=== PATIENT | female | born 1985 | race Caucasian/White ===

== ENCOUNTER 2016-08-31 13:48 | Emergency (ER) | payer OTHER ==
[~2016-08-31] VITALS: Ht 167.6 cm; Wt 57.2 kg
[~2016-08-31 13:48] MED LIST: PREG100C PO; SERT-234 PO; TRAM-10 PO
[2016-08-31 13:50] VITALS: TEMP 36.7; Ht 167.6 cm; Wt 57.2 kg
[2016-08-31] MEDS ORDERED: ONDANSETRON INJ 2 MG/ML 2 ML VIAL IV STA (14:01)
[2016-08-31] MEDS ORDERED: SODIUM CHLORIDE 0.9% 1000ML 1,000 ML IV STA (14:01)
[2016-08-31 14:13] LABS: BASO % 0.7 %; BASO ABS # 0.05 K/uL (0-0.2); COMPLETE YES; EOS % 0.6 %; HEMATOCRIT 43.7 % (37-47); IG% 0.1 %; LYMPH % 26.3 %; LYMPH ABS # 1.82 K/uL (1.2-3.4); MEAN CELL VOLUME 86.9 fL (80-100); MEAN CORPUSCULAR HEMOGLOBIN 29.2 pg (25-34); MEAN CORPUSCULAR HGB CONC 33.6 g/dl (32-36); MEAN PLATELET VOLUME 11.7 fL (7.4-10.4); MONO % 5.5 %; NEUT % 66.8 %; PLATELET COUNT 195 K/uL (130-400); RED BLOOD COUNT 5.03 M/uL (4.2-5.4); WHITE BLOOD COUNT 6.91 K/uL (4.8-10.8)
[2016-08-31] MEDS ORDERED: ONDA4TAB10 SL (14:20)
[2016-08-31] MEDS ORDERED: OXYC1TAB3 PO (14:20)
[2016-08-31] MEDS ORDERED: OPTIRAY 320 IV PRN (14:30)
[2016-08-31 14:32] LABS: ALT/SGPT 19 U/L (12-78); BLOOD UREA NITROGEN 10 mg/dl (7-18); BUN/CREATININE RATIO 10.1 (10-20); CALCIUM 9.2 mg/dl (8.5-10.1); CARBON DIOXIDE 26 mmol/L (21-32); CHLORIDE 106 mmol/L (98-107); CREATININE 0.94 mg/dl (0.60-1.20); GLUCOSE 96 mg/dl (70-99); POTASSIUM 3.9 mmol/L (3.5-5.1); SODIUM 138 mmol/L (136-145)
[2016-08-31] MEDS ORDERED: IBUP-1050 PO (14:32)
[2016-08-31 14:35] LABS: ALKALINE PHOSPHATASE 51 U/L (45-117); AST/SGOT 11 U/L (15-37)
[2016-08-31 15:16] LABS: URINE APPEARANCE CLEAR (CLEAR); URINE BILIRUBIN NEG (NEG); URINE COLOR YELLOW; URINE EPITHELIAL CELL AUTO >30 /lpf (0-5); URINE NITRITE NEG (NEG); URINE SPECIFIC GRAVITY 1.008 (1.000-1.030); UROBILINOGEN NEG (NEG)
[2016-08-31 15:18] LABS: MANUAL MICROSCOPIC REQUIRED? NO; REVIEW REQ? NO
--- NOTE | 2016-08-31 17:00 | DIAGNOSTIC IMAGING REPORT ---
CT SCAN OF THE ABDOMEN AND PELVIS WITH IV CONTRAST CLINICAL HISTORY: Right lower quadrant abdominal pain. COMPARISON STUDY: No priors. TECHNIQUE: Following the IV administration of 94 cc of Optiray 320, CT scan of the abdomen and pelvis is performed from the lung bases to the proximal femora. Images are reviewed in the axial, sagittal, and coronal planes. IV contrast was administered without complication. Automated dose control exposure was utilized. CT DOSE: 234.10 mGy.cm FINDINGS: Lung bases: The heart is normal in size and without pericardial effusion. There is minimal dependent scarring versus atelectasis at the left lung base. The lung bases are otherwise clear. Liver: The contrast-enhanced liver is normal in size, contour, and attenuation. There is no intrahepatic biliary ductal dilatation. The hepatic veins and portal veins are patent. Gallbladder: Unremarkable. Spleen: Normal in size and attenuation. Pancreas: Unremarkable. Adrenal glands: Unremarkable. Kidneys: The contrast enhanced kidneys are normal in size and without hydronephrosis. The kidneys enhance symmetrically. There is a 6 cm nonobstructing calculus in the upper pole of the right kidney. Tiny left renal calculi are also suspected but difficult to confirm on this contrast-enhanced examination. Abdominal vasculature: The abdominal aorta is normal in course and caliber. Bowel: The small bowel and colon are normal in course and caliber. Moderate colonic fecal retention is observed. The appendix is well-visualized and normal. Peritoneum: There is no intraperitoneal free air or abdominal ascites. There is a fat-containing umbilical hernia. Lymphadenopathy: None. Pelvic viscera: The bladder, uterus, and adnexa are normal as visualized. There are bilateral ovarian follicles. An involuting follicle is noted on the right. Skeletal structures: No lytic or blastic lesions are seen. IMPRESSION: 1. There are no acute infectious or inflammatory findings in the abdomen or pelvis. 2. Moderate constipation. 3. Nonobstructing right renal calculus. Tiny nonobstructing left calculi are also suspected but difficult to confirm given the presence of IV contrast. There is no hydronephrosis. 4. Additional findings as above. Electronically signed by: Omar Caldera M.D. 08/31/2016 4:58 PM Dictated Date/Time: 08/31/2016 4:53 PM
[2016-08-31] MEDS ORDERED: OXYCODONE IR HOME PACK PO ONE (17:45)
--- NOTE | 2016-08-31 17:52 | EMERGENCY ROOM VISIT NOTE ---
History Report prepared by Tasha: Keeley Johnson Under the Supervision of: Dr. Matt Rucker M.D. First contact with patient: 13:54 Chief Complaint: FLANK PAIN Stated Complaint: KIDNEY PAIN History of Present Illness The patient is a 30 year old female who presents to the Emergency Room with complaints of waxing and waning bilateral flank pain that began 2 days prior to arrival. The patient states that the right side is more severe than the left. She also notes that the pain radiates around to her abdomen. She states that the pain is constant but the severity waxes and wanes. The patient is experiencing nausea and loose stools. She denies vomiting. The patient saw her PCP and was referred to the ED for check of a kidney stone. The patient has a history of kidney stones. She denies fevers or blood in her urine. The patient has endometrioses and states that this pain is more severe that what she experiences from this. Source of History: patient Onset: [address] Position: other (bilateral flanks) Timing: waxes/wanes Associated Symptoms: + nausea, No fevers, No vomiting Note: The patient is experiencing loose stools. She denies blood in her urine. Review of Systems See HPI for pertinent positives & negatives. A total of 10 systems reviewed and were otherwise negative. Past Medical & Surgical Medical Problems: (1) Acute costochondritis (2) Bilateral tubal ligation (3) section (4) Chronic interstitial cystitis (5) Kidney calculi (6) Tietze's Disease Family History Diabetes mellitus Social History Smoking Status: Never Smoker Alcohol Use: occasionally Drug Use: none Marital Status: Housing Status: lives with family Occupation Status: employed Current/Historical Medications Scheduled Ondasetron Odt (Zofran Odt), 4 MG SL Q6H Scheduled PRN Ibuprofen (Advil), 400 MG PO UD PRN for Pain Oxycodone Ir (Roxicodone Ir), 5 MG PO Q4H PRN for Pain Allergies Coded Allergies: No Known Allergies (Verified Allergy, Unknown, 08/10/05) Physical Exam Vital Signs Date Time Temp Pulse Resp B/P (MAP) Pulse Ox O2 Delivery O2 Flow Rate FiO2 08/31/16 16:11 60 18 131/80 98 08/31/16 13:50 36.7 82 18 135/85 98 Room Air Physical Exam Constitutional: Vital signs reviewed. Eyes: Pupils are equal round reactive to light. Conjunctiva are noninjected. ENT: Pharynx is clear without erythema or exudate. Mucous membranes are moist. Neck supple without meningeal signs. Respiratory: Clear to auscultation bilaterally. Breath sounds are equal bilaterally. Cardiovascular: Regular rate and rhythm. No rubs or gallops. GI: Soft, nondistended, right lower quadrant tenderness, no guarding. Bowel sounds are present. Musculoskeletal: No peripheral edema. No lower extremity tenderness. Integumentary: No cyanosis. Neurological: The patient is awake and alert. No focal deficits. Psychiatric: Normal affect. Medical Decision & Procedures ER Provider Diagnostic Interpretation: CT results as stated below per my review and radiologist interpretation. CT SCAN OF THE ABDOMEN AND PELVIS WITH IV CONTRAST CLINICAL HISTORY: Right lower quadrant abdominal pain. COMPARISON STUDY: No priors. TECHNIQUE: Following the IV administration of 94 cc of Optiray 320, CT scan of the abdomen and pelvis is performed from the lung bases to the proximal femora. Images are reviewed in the axial, sagittal, and coronal planes. IV contrast was administered without complication. Automated dose control exposure was utilized. CT DOSE: 234.10 mGy.cm FINDINGS: Lung bases: The heart is normal in size and without pericardial effusion. There is minimal dependent scarring versus atelectasis at the left lung base. The lung bases are otherwise clear. Liver: The contrast-enhanced liver is normal in size, contour, and attenuation. There is no intrahepatic biliary ductal dilatation. The hepatic veins and portal veins are patent. Gallbladder: Unremarkable. Spleen: Normal in size and attenuation. Pancreas: Unremarkable. Adrenal glands: Unremarkable. Kidneys: The contrast enhanced kidneys are normal in size and without hydronephrosis. The kidneys enhance symmetrically. There is a 6 cm nonobstructing calculus in the upper pole of the right kidney. Tiny left renal calculi are also suspected but difficult to confirm on this contrast-enhanced examination. Abdominal vasculature: The abdominal aorta is normal in course and caliber. Bowel: The small bowel and colon are normal in course and caliber. Moderate colonic fecal retention is observed. The appendix is well-visualized and normal. Peritoneum: There is no intraperitoneal free air or abdominal ascites. There is a fat-containing umbilical hernia. Lymphadenopathy: None. Pelvic viscera: The bladder, uterus, and adnexa are normal as visualized. There are bilateral ovarian follicles. An involuting follicle is noted on the right. Skeletal structures: No lytic or blastic lesions are seen. IMPRESSION: 1. There are no acute infectious or inflammatory findings in the abdomen or pelvis. 2. Moderate constipation. 3. Nonobstructing right renal calculus. Tiny nonobstructing left calculi are also suspected but difficult to confirm given the presence of IV contrast. There is no hydronephrosis. 4. Additional findings as above. Electronically signed by: Omar Caldera M.D. 08/31/2016 4:58 PM Dictated Date/Time: 08/31/2016 4:53 PM Laboratory Results 08/31/16 14:06 Red Blood Count 5.03, Mean Corpuscular Volume 86.9, Mean Corpuscular Hemoglobin 29.2, Mean Corpuscular Hemoglobin Concent 33.6, Mean Platelet Volume 11.7, Neutrophils (%) (Auto) 66.8, Lymphocytes (%) (Auto) 26.3, Monocytes (%) (Auto) 5.5, Eosinophils (%) (Auto) 0.6, Basophils (%) (Auto) 0.7, Neutrophils # (Auto) 4.61, Lymphocytes # (Auto) 1.82, Monocytes # (Auto) 0.38, Eosinophils # (Auto) 0.04, Basophils # (Auto) 0.05 08/31/16 14:06 Test 08/31/16 14:06 08/31/16 15:06 White Blood Count 6.91 K/uL (4.8-10.8) Red Blood Count 5.03 M/uL (4.2-5.4) Hemoglobin 14.7 g/dL (12.0-16.0) Hematocrit 43.7 % (37-47) Mean Corpuscular Volume 86.9 fL (80-100) Mean Corpuscular Hemoglobin 29.2 pg (25-34) Mean Corpuscular Hemoglobin Concent 33.6 g/dl (32-36) Platelet Count 195 K/uL (130-400) Mean Platelet Volume 11.7 fL (7.4-10.4) Neutrophils (%) (Auto) 66.8 % Lymphocytes (%) (Auto) 26.3 % Monocytes (%) (Auto) 5.5 % Eosinophils (%) (Auto) 0.6 % Basophils (%) (Auto) 0.7 % Neutrophils # (Auto) 4.61 K/uL (1.4-6.5) Lymphocytes # (Auto) 1.82 K/uL (1.2-3.4) Monocytes # (Auto) 0.38 K/uL (0.11-0.59) Eosinophils # (Auto) 0.04 K/uL (0-0.5) Basophils # (Auto) 0.05 K/uL (0-0.2) RDW Standard Deviation 40.8 fL (36.4-46.3) RDW Coefficient of Variation 12.7 % (11.5-14.5) Immature Granulocyte % (Auto) 0.1 % Immature Granulocyte # (Auto) 0.01 K/uL (0.00-0.02) Anion Gap 6.0 mmol/L (3-11) Est Creatinine Clear Calc Drug Dose 77.6 ml/min Estimated GFR () 93.0 Estimated GFR (Non- 80.3 BUN/Creatinine Ratio 10.1 (10-20) Calcium Level 9.2 mg/dl (8.5-10.1) Total Bilirubin 0.3 mg/dl (0.2-1) Direct Bilirubin < 0.1 mg/dl (0-0.2) Aspartate Amino Transf (AST/SGOT) 11 U/L (15-37) Alanine Aminotransferase (ALT/SGPT) 19 U/L (12-78) Alkaline Phosphatase 51 U/L (45-117) Total Protein 8.1 gm/dl (6.4-8.2) Albumin 4.5 gm/dl (3.4-5.0) Lipase 153 U/L (73-393) Urine Color YELLOW Urine Appearance CLEAR (CLEAR) Urine pH 8.0 (4.5-7.5) Urine Specific Edison 1.008 (1.000-1.030) Urine Protein NEG (NEG) Urine Glucose (UA) NEG (NEG) Urine Ketones NEG (NEG) Urine Occult Blood NEG (NEG) Urine Nitrite NEG (NEG) Urine Bilirubin NEG (NEG) Urine Urobilinogen NEG (NEG) Urine Leukocyte Esterase TRACE (NEG) Urine WBC (Auto) 1-5 /hpf (0-5) Urine RBC (Auto) 0-4 /hpf (0-4) Urine Hyaline Casts (Auto) 1-5 /lpf (0-5) Urine Epithelial Cells (Auto) >30 /lpf (0-5) Urine Bacteria (Auto) NEG (NEG) Urine Test NEG (NEG) Laboratory results as reviewed by me. Medications Administered Medications (Trade) Dose Ordered Sig/Jailyn Route Start Time Stop Time Status Last Admin Dose Admin Ondansetron HCl (Zofran Inj) 4 mg NOW STAT IV 08/31/16 14:01 08/31/16 14:02 DC 08/31/16 14:13 4 MG Sodium Chloride 1,000 ml @ 999 mls/hr Q1H1M STAT IV 08/31/16 14:01 08/31/16 15:01 DC 08/31/16 14:01 999 MLS/HR ED Course 1355: The patient was evaluated in room C2. A complete history and physical exam was performed. 1401: Sodium Chloride 1,000 ml @ 999 mls/hr IV, Zofran Inj 4 mg IV. 1444: I discussed the patient's test results and she will give a urine sample now. 1927: I reassessed the patient. I discussed the test results with her. 1930: Upon reevaluation, the patient appeared to have improvement of her symptoms. I discussed sarita's findings with her. She verbalized agreement of the treatment plan. She was discharged home. Medical Decision This is a 30-year-old female presents with abdominal and flank pain. Differential diagnosis includes renal colic, pyelonephritis, UTI, appendicitis, irritable bowel syndrome, inflammatory bowel disease, ectopic , endometriosis. I did perform a limited focused review of portions of the patient's old chart on the electronic medical record. The patient has had no recent pertinent visits to this hospital. Medication Reconciliation: I attest that I have personally reviewed the patient' s current medication list. Blood Pressure Screening: Patient was found to have a slightly elevated blood pressure due to circumstances. I do not believe that the patient requires hypertension monitoring. I did evaluate the patient as noted above. She is tender in the right lower quadrant on examination. IV access was established. I did treat her with IV Zofran and normal saline IV. The patient was made NPO. I did order and personally review the patient's urinalysis as described above. There is no significant evidence of infection. I did order and review the patient's blood work as noted in the electronic medical record. I did order a CT of the abdomen and pelvis. I did review the images myself as well as the radiology report as described above. There is no evidence of acute process on CT scan. She does have some incidental findings which I discussed with her. She does believe that this is likely an exacerbation of her endometriosis. She has an appointment to see her HARVESTING MANAGER. I did advise patient to follow up with her regular doctor she as well. She was given oxycodone for breakthrough pain should she need it. She was given precautions regarding this medication. She was also given a prescription for Zofran if needed. She was discharged in good condition. [place] Drug Monitoring Program Search Results: patient reviewed within database, no issues identified Impression Primary Impression: Bilateral flank pain Additional Impression: Right lower quadrant abdominal pain Scribe Attestation The scribe's documentation has been prepared under my direct and personally reviewed by me in its entirety. I confirm that the note above accurately reflects all work, treatment, procedures, and medical decision making performed by me. Departure Information Dispostion Home / Self-Care Prescriptions Ondasetron Odt (ZOFRAN ODT) 4 Mg Tab 4 MG SL Q6H for Nausea, #10 TAB Prov: Matt Rucker M.D. 08/31/16 Oxycodone Ir (Roxicodone Ir) 5 Mg Tab 5 MG PO Q4H Y for Pain, #20 TAB Prov: Matt Rucker M.D. 08/31/16 Referrals Vadim Singh M.D.(FLIP) (PCP) Forms HOME CARE DOCUMENTATION FORM, IMPORTANT VISIT INFORMATION Patient Instructions ED Flank Pain Uncertain Cause, My [facility] Additional Instructions You have been examined and treated today on an emergency basis only. This is not a substitute for, or an effort to provide, complete comprehensive medical care. It is impossible to recognize and treat all injuries or illnesses in a single emergency department visit. It is therefore important that you follow up closely with your physician. Call as soon as possible for an appointment. Return for worsening symptoms or if you develop fever, vomiting, or any other concerning symptoms. Problem Qualifiers
[2016-08-31 18:10] VITALS: BP 110/72; PULSE 76; O2SAT 98
== END 2016-08-31 18:00 | disposition home or self-care (01) ==
LOC: C.EDB 13:49 → C.EDC 18:00
DX: N20.0 Calculus of kidney (principal); R10.31 Right lower quadrant pain; R10.9 Unspecified abdominal pain; K59.00 Constipation, unspecified

== ENCOUNTER 2018-06-12 07:59 | Observation (INO) ==
--- NOTE | 2018-05-26 14:17 | PAT Medication Instructions ---
Medication Instructions Date of Service May 26, 2018 Home Medications naproxen sodium [Aleve] 440 mg PO UD PRN ondansetron HCl [Zofran] 8 mg PO TID PRN rizatriptan [Maxalt] 10 mg PO UD PRN sertraline [Zoloft] 50 mg PO QPM ASK your surgeon for instructions naproxen sodium [Aleve] 440 mg PO UD PRN Take morning of surgery With a small sip of water, OTHERWISE NOTHING TO EAT OR DRINK AFTER MIDNIGHT: ondansetron HCl [Zofran] 8 mg PO TID PRN (if needed) rizatriptan [Maxalt] 10 mg PO UD PRN (if needed) Take evening before surgery ondansetron HCl [Zofran] 8 mg PO TID PRN (if needed) rizatriptan [Maxalt] 10 mg PO UD PRN (if needed) sertraline [Zoloft] 50 mg PO QPM Other Notes If you have any questions please call us at [phone] or [phone] or [phone] or [phone]
--- NOTE | 2018-05-26 14:35 | Anesthesiology Consultation ---
Date of Service May 26, 2018 Assessment & Plan (1) Encounter for pre-operative examination: - Check test AM DOS Chart Review Chart Review: Acceptable Risk for Surgery and Patient seen in Pre Admission Te sting Teaching & Discussion Pre-Anesthesia Teaching/Discussion Notes: Instructed NPO after midnight before surgery,except medications with 15 cc of water. Medication instructions provided according to the PAT guidelines. History Surgery Operation Date: 06/12/18 08:15 Proposed Procedures p Total Laparoscopic Hysterectomy, Bilateral Salpingectomy and Cystoscopy - Tisha Grant Height/Weight Height: 5 ft 6 in Weight: 59.1 kg Allergies Allergy/AdvReac Type Severity Reaction Status Date / Time pregabalin [From Lyrica] AdvReac Seizure Verified 05/26/18 14:57 Medications Home Medications Medication Instructions Recorded Confirmed Last Taken naproxen sodium [Aleve] 440 mg PO UD PRN 05/19/18 05/19/18 Unknown ondansetron HCl [Zofran] 8 mg PO TID PRN 05/19/18 05/19/18 Unknown rizatriptan [Maxalt] 10 mg PO UD PRN 05/19/18 05/19/18 Unknown sertraline [Zoloft] 50 mg PO QPM 05/19/18 05/19/18 Unknown Past Medical History Medical History Abnormal uterine bleeding Anxiety Chronic back pain Degenerative disc disease Depression Fibromyalgia History of IBS History of palpitations REMOTE; HX OF ARRHYTHMIA NOTED 15+ YEARS AGO; DENIES A. FIB/FLUTTER- NO ISSUES SINCE (NSR ON MOST RECENT EKG) Migraine Osteoarthritis Seizure 2015 X 1 FELT 2/2 MEDS AT THE TIME (LYRICA); NO ISSUES SINCE Past Family History Family History Mother Family history of diabetes mellitus Grandmother (Maternal) Family history of diabetes mellitus Past Surgical History Surgical History Ear cysts REMOVAL BRANCHIAL CYST RIGHT EAR History of section X 2 History of cystoscopy 06/20/10= LMA#4 AT [facility] History of laparoscopy FOR ENDOMETRIOSIS History of tooth extraction WISDOM TEETH Past Anesthesia History No Hx of Anesthesia Complications and No Family Hx of Anesthesia Complications History of PONV No Motion Sickness Screening History of Motion Sickness: No Social History Smoking Status: Never smoker Do You Dip or Chew Tobacco: No Hx Alcohol Use: Yes Alcohol type: beer alcohol intake frequency: a few times a month Hx Substance Use: No Exercise / Class Metabolic Activity II 4-5 Yardwork/Stairs/Walk up hill Review of Systems Patient denies chest pain, shortness of breath, dyspnea on exertion, cough, wheezing, palpitations. Physical Exam Vital Signs VITALS BP 118/77 P 61 TEMP 98.0 SP02 97%RA RESP 18 PHYSICAL Full neck and c-spine range of motion. Full TMJ range of motion. TMD 3.5 finger breaths Mallampati Score 3 Dentition: "chipped" lower front, lower front "loose" teeth s/p seizure Lungs: clear throughout to auscultation Cardiac: regular rate and rhythm, no murmurs noted Spine: normal Extremities: no edema Testing Electrocardiogram Date: 07/01/14 Findings: + NSR @ (80) Laboratory Results 05/26/18 15:08 Blood Type A Positive 05/26/18 15:08 Antibody Screen NEGATIVE 05/26/18 15:08
[2018-05-26 15:25] LABS: Basophils # (auto) 0.04 K/uL (0-0.2); Basophils % (auto) 0.4 %; Eosinophils # (auto) 0.07 K/uL (0-0.5); Eosinophils % (auto) 0.7 %; Hemoglobin 13.3 g/dL (12.0-16.0); Immature Granulocytes # (auto) 0.02 K/uL (0.00-0.02); Immature Granulocytes % (auto) 0.2 %; Lymphocytes # (auto) 1.71 K/uL (1.2-3.4); Lymphocytes % (auto) 17.7 %; Mean Corpuscular Hgb Conc 34.1 g/dL (32-36); Mean Corpuscular Volume 86.9 fL (80-100); Mean Platelet Volume 11.5 fL (7.4-10.4); Monocytes # (auto) 0.52 K/uL (0.11-0.59); Monocytes % (auto) 5.4 %; Neutrophils # (auto) 7.29 K/uL (1.4-6.5); Neutrophils % (auto) 75.6 %; Platelet Count 191 K/uL (130-400); RDW Coefficient of Variation 12.8 % (11.5-14.5); RDW Standard Deviation 40.9 fL (36.4-46.3); Red Blood Count 4.49 M/uL (4.2-5.4); White Blood Count 9.65 K/uL (4.8-10.8)
[~2018-06-12 07:59] MED LIST changes: +CEFAZOLIN 2000MG 2,000 MG/15 ML SYR IV SCH; +LACTATED RINGER'S 1,000 ML IV SCH; +LR 15ML/HR IV SCH; -PREG100C PO; -SERT-234 PO; -TRAM-10 PO
[2018-06-12] MEDS ORDERED: ATROPINE SULFATE 0.1 MG/ML 10ML SYR IV PRN (08:31)
[2018-06-12] MEDS ORDERED: DEXAMETHASONE SOD INJ 4 MG/ML VIAL IV PRN (08:31)
[2018-06-12] MEDS ORDERED: KETOROLAC 30 MG/ML VIAL IV PRN (08:31)
[2018-06-12] MEDS ORDERED: ePHEDrine sulfate 50 MG/ML AMP IV PRN (08:31)
[2018-06-12] MEDS ORDERED: ONDANSETRON INJ 2 MG/ML 2 ML VIAL IV PRN ×2 (08:31→11:38)
[2018-06-12] MEDS ORDERED: HYDROmorphone INJ 2 MG/ML SYR/VIAL IV PRN (08:31)
[2018-06-12] MEDS ORDERED: MIDAZOLAM HCL 1 MG/ML 2ML VIAL ONE (08:31)
[2018-06-12] MEDS ORDERED: LIDOCAINE HCL 2% 2 ML VIAL/AMP(20MG/ML) INFIL ONE (08:32)
[2018-06-12] MEDS ORDERED: ROCURONIUM BROMIDE 10 MG/ML 5 ML VIAL ONE (08:32)
[2018-06-12] MEDS ORDERED: PROPOFOL IV EMULSION 10 MG/ML 20 ML VIAL IV ONE (08:32)
[2018-06-12] MEDS ORDERED: fentaNYL citrate 100 MCG/2 ML VIAL ONE (08:33)
[2018-06-12] MEDS ORDERED: ONDANSETRON INJ 2 MG/ML 2 ML VIAL ONE (08:33)
--- NOTE | 2018-06-12 08:38 | History & Physical Bridge Note ---
Date of Service June 12, 2018 History & Physical Bridge Note I have examined the patient, reviewed the History & Physical and in the interval since the performance of the History & Physical I have noted the following changes of clinical significance: no changes noted
[2018-06-12] MEDS ORDERED: BUPIVACAINE 0.5 % 5 MG/1 ML MPF 30ML VIAL ONE (09:06)
[2018-06-12] MEDS ORDERED: METHYLENE BLUE 0.5% 10 ML VIAL ONE (09:06)
[2018-06-12] MEDS ORDERED: HYDROmorphone INJ 2 MG/ML SYR/VIAL ONE (09:40)
[2018-06-12] MEDS ORDERED: TISSEEL FIBRIN SEALANT 10ML TOP ONE (10:14)
--- NOTE | 2018-06-12 11:04 | Post Operative Brief Note ---
Immediate Post Op Note v1 Date of Surgery June 12, 2018 Pre & Post Diagnosis Operation Date: 06/12/18 08:15 Pre-Op Diagnosis: Chronic Pelvic Pain and Abnormal Uterine Bleeding Post-Op Diagnosis: Chronic Pelvic Pain and Abnormal Uterine Bleeding Procedure Operation Date: 06/12/18 08:15 Actual Procedures p Total Laparoscopic Hysterectomy, Bilateral Salpingectomy and Cystoscopy(Bilateral) - Tisha Grant Surgeon Tisha Grant Scientific Technical Writer July Sharma PA-C Estimated Blood Loss 25 Findings Consistent with Post-Op Diagnosis Drains Andrew Catheter
[2018-06-12] MEDS ORDERED: KETOROLAC 30 MG/ML VIAL ONE (11:36)
[2018-06-12] MEDS ORDERED: GLYCOPYRROLATE 0.2 MG/ML VIAL ONE (11:36)
[2018-06-12] MEDS ORDERED: NEOSTIGMINE METHYLSULFATE 5 MG/5 ML SYR ONE (11:36)
[2018-06-12] MEDS ORDERED: OXYCODONE/ACETAMINOPHEN 5mg/325mg TAB PO PRN (11:38)
[2018-06-12] MEDS ORDERED: SODIUM CHLORIDE 0.9% 1000ML 1,000 ML IV SCH (11:38)
--- NOTE | 2018-06-12 11:41 | Operative Report ---
Post Operative Report Pre & Post Diagnosis Operation Date: 06/12/18 08:15 Pre-Op Diagnosis: Chronic Pelvic Pain and Abnormal Uterine Bleeding Post-Op Diagnosis: Chronic Pelvic Pain and Abnormal Uterine Bleeding Procedure Operation Date: 06/12/18 08:15 Actual Procedures p Total Laparoscopic Hysterectomy, Bilateral Salpingectomy and Cystoscopy(Bilateral) - Tisha Grant Surgeon Tisha Grant Photo Checker And Assembler July Sharma PA-C Estimated Blood Loss 25 Findings See Below 1. 8 cm anteverted uterus 2. Omental adhesions to the left anterior abdominal wall 3. Normal appearing left ovary 4. Right ovary with a 0.5 cm chocolate cyst correlating with a small endometrioma 5. Normal appearing segmented fallopian tubes (history of tubal ligation) 6. Posterior cul-de-sac was free of adhesions or lesions 7. Anterior cul-de-sac: adhesions to the lower uterine segment (history of c- section) 8. Normal appearing liver edge 9. Normal appearing appendix Fluids 1400 ml Specimens Uterus, cervix, and bilateral fallopian tubes Drains Walters catheter removed prior to the end of the case Anesthesia Type General Complications none Disposition Disposition: Recovery Room Indications 32 yo P2 with abnormal heavy menstrual bleeding. Patient used OCPs for symptoms but migraines worsened and had to discontinue. Patient desiring definitive surgical management via hysterectomy. Description of Procedure Under GA in the dorsal lithotomy position, the patient was prepped and drapped in the usual sterile fashion. Beginning at the vagina, a walters catheter was inserted under sterile conditions and left in situ for the remainder of the case. A weighted speculum was then placed in the vagina and with the help of a right angle retractor the cervix was visualized and grasped anteriorly with a single tooth tenaculum. The cervical os was dilated with Hegar dilators. The uterus was then sounded to 8 cm with a uterine sound. An [employer] uterine manipulator with a metal cup was inserted. The weighted speculum was then removed. Attention was then turned to the abdomen. 0.5% marcaine solution was used for infiltration of all port sites. Beginning in the subumbilical area, the skin was first infiltrated with ~ 2 cc of the marcaine solution, then a 5 mm incision was made through the skin with a #11 blade. Direct entry with the 5 mm trocar, sleeve and laparoscope was made into the peritoneal cavity. The opening pressure was < 8 mmHg. The peritoneal cavity was insufflated with CO2 gas to a maximum pressure of 20 mmHg. Examination of the peritoneal cavity revealed no signs of injury from entry and normal anatomical structures. The patient was then placed in steep Trendelenburg and three more 5 mm trocars were placed, one on the right and two on the left, in the standard technique, taking care to avoid the epigastric vessels. All trocars were placed under direct visualization with no inadvertent damage to underlying structures. The uterus was upheld from below and revealed the above noted findings. Beginning on the left side and working distally along the length of the fa llopean tube, the mesosalpinx was exposed by lifting the tube up towards the anterior abdominal wall. The mesosalpinx was then sequentially, clamped, ligated, and cut using the EMMANUEL Harmonic working alongside the length of the tube and towards the cornua. Once the level of the cornua was reached the tube was ligated and cut. Attention was then turned to the other side. The same process was repeated on the right, sequentially clamping, ligating, and cutting the mesosalpinx being sure to not injure the adjacent ovarian tissue or other surrounding structures. The round ligament was then ligated and cut. Following this, the anterior leaf of the broad ligament was then taken down on the right side, dissecting down towards the peritoneal reflection at the base of the bladder and adjacent to the cervix. The same process was then repeated on the left side such that both sides met and the anterior leaflet had been appropriately skeletonized. Once the bladder was appropriately dissected free from the lower anterior uterine segment and the tissues skeletonized, the uterine arteries were bilaterally clamped and ligated. Pedicles were checked and hemostatic. At the level of the metal cup of the uterine manipulator, the vaginal vault was incised circumferentially with the EMMANUEL Harmonic. The uterus, cervix, and fallopian tubes was delivered through the vagina and sent to pathology. The vaginal occluder was then placed into the vagina to form a pneumatic seal and all the pedicles as well as the cuff edges were examined. Hemostasis was noted. The vaginal vault was then closed with a V-Loc barbed stitch being sure to avoid the bladder lateral pedicles. Following vault closure, an inspection of all areas was made to ensure hemostasis. Tisseal was applied to the vaginal cuff. Hemastasis was once again noted. All ports were removed under direct visualization and hemostasis noted. All the incision sites were then closed with 4-0 monocryl sutures in a subcuticular fashion and dermabond. The vaginal occluder and walters catheter was then removed. Cystoscopy was performed. Normal appearing bladder dome. Bladder was free of lesions or suture. Brisk bilateral efflux of methylene blue from the ureteral orifices was visualized. The bladder was drained and the cystoscope removed without difficulty. At the end of the procedure, all sponges, instruments, and sharps were counted and correct. Estimated blood loss was 25 ml. The patient was taken to recovery in stable condition. I attest to the content of the Intraoperative Record and any orders documented therein. Any exceptions are noted below.
[2018-06-12] MEDS: fentaNYL citrate 100 MCG/2 ML VIAL IV PRN ×2 (12:19→12:27)
--- NOTE | 2018-06-12 13:35 | Anesthesiology Progress Note ---
Date of Service June 12, 2018 Anesthesia Post Procedure Vital Signs Vital Signs: Temp Pulse Resp BP Pulse Ox 06/12/18 13:00 62 16 136/86 99 06/12/18 12:50 62 12 139/98 99 06/12/18 12:40 37.2 C 59 L 17 139/88 100 06/12/18 12:30 59 L 12 145/95 H 98 06/12/18 12:20 62 16 149/92 H 100 06/12/18 12:10 62 12 161/100 H 99 06/12/18 12:00 36.2 C L 63 13 158/95 H 100 06/12/18 11:50 69 18 152/98 H 100 06/12/18 11:40 60 12 138/86 100 06/12/18 11:30 60 14 144/93 H 100 06/12/18 11:23 36.3 C L 83 15 135/92 100 Pain Intensity Generalized: Pain Intensity: 2 Abdomen: Pain Intensity: 2 Other: Pain Intensity: 2 Notes Mental Status: alert / awake / arousable and participated in evaluation Patient Amnestic to Procedure: Yes Nausea / Vomiting: adequately controlled Pain: adequately controlled Airway Patency, RR, SpO2: stable & adequate BP & HR: stable & adequate Hydration State: stable & adequate Anesthetic Complications: no major complications apparent
[2018-06-12] MEDS: ACETAMINOPHEN 325 MG TAB PO SCH ×3 (15:37→23:43)
[2018-06-12] MEDS: ONDANSETRON INJ 2 MG/ML 2 ML VIAL IV PRN ×2 (15:46→22:21)
[2018-06-12] MEDS: METOCLOPRAMIDE HCL INJ 5 MG/ML 2 ML VIAL IV PRN ×2 (16:31→23:44)
[2018-06-12] MEDS: IBUPROFEN 600 MG TAB PO SCH ×2 (16:32→21:27)
[2018-06-12] MEDS: SIMETHICONE 80 MG CHEW PO SCH ×3 (16:32→21:27)
[2018-06-12] MEDS ORDERED: RIZATRIPTAN BENZOATE 10 MG TAB PO ONE (18:30)
[2018-06-12] MEDS: DOCUSATE SODIUM 100 MG CAP PO SCH (21:28)
[2018-06-13] MEDS: IBUPROFEN 600 MG TAB PO SCH ×2 (03:25→09:00)
[2018-06-13] MEDS: SIMETHICONE 80 MG CHEW PO SCH ×2 (03:26→08:59)
[2018-06-13] MEDS: ACETAMINOPHEN 325 MG TAB PO SCH (06:02)
[2018-06-13 07:22] LABS: Basophils # (auto) 0.01 K/uL (0-0.2); Basophils % (auto) 0.1 %; Hematocrit (blood only) 36.8 % (37-47); Hemoglobin 12.9 g/dL (12.0-16.0); Immature Granulocytes # (auto) 0.02 K/uL (0.00-0.02); Immature Granulocytes % (auto) 0.2 %; Lymphocytes # (auto) 1.81 K/uL (1.2-3.4); Lymphocytes % (auto) 15.9 %; Mean Corpuscular Hgb Conc 35.1 g/dL (32-36); Mean Corpuscular Volume 85.6 fL (80-100); Mean Platelet Volume 11.6 fL (7.4-10.4); Monocytes # (auto) 1.06 K/uL (0.11-0.59); Monocytes % (auto) 9.3 %; Neutrophils # (auto) 8.45 K/uL (1.4-6.5); Neutrophils % (auto) 74.5 %; Platelet Count 166 K/uL (130-400); RDW Coefficient of Variation 12.7 % (11.5-14.5); RDW Standard Deviation 39.7 fL (36.4-46.3); White Blood Count 11.35 K/uL (4.8-10.8)
--- NOTE | 2018-06-13 07:43 | Gynecologic Progress Note ---
Date of Service June 13, 2018 Assessment & Plan (1) S/P laparoscopic hysterectomy: POD#1. Patient now tolerating regular diet. Pain controlled with NSAIDs and tylenol. Discharge home with instructions and medications. Present on Admission?: No Subjective POD#1. s/p TLH/BS/Cystoscopy. Pt with nausea and dry heaving overnight caused by migraine. Eventually able to tolerate crackers and apple juice around 0400. Pt reports minimal vaginal spotting and crampy abdominal pain.Urinating without difficulty. Denies fevers, chills, SOB or CP. Physical Exam Vital Signs (Past 24 Hours): Last Vital Signs Temp 36.8 C 06/13/18 03:30 Pulse 68 06/13/18 03:30 Resp 20 06/13/18 03:30 BP 125/82 06/13/18 03:30 Pulse Ox 98 06/13/18 03:30 Respiratory: Auscultation: lungs clear to auscultation bilaterally Cardiovascular: Rate/Rhythm: regular rate and regular rhythm Gastrointestinal (Abdomen): Inspection/Auscultation: abdomen normal to inspection Percussion/Palpation: abdomen soft Appropriately tender to palpation. Incisions: C/D/I. No erythema or edema
--- NOTE | 2018-06-13 07:51 | Discharge Summary ---
Date of Service June 13, 2018 Admission HPI Per Admitting Provider 32 yo female with chronic pelvic pain, abnormal heavy menses, intermenstrual bleeding and dyspareunia. Patient with long-standing pelvic pain with suspected diagnosis of endometriosis due to AUB, HMB, dysmenorrhea, dysuria, and dyspareunia. Patient has used OCPs in the past but discontinued secondary to worsening migraines. Patient not currently on any hormonal therapy. Her periods are occurring irregularly every 20-40 days, lasting 7 days, with moderate and heavy flow. Patient uses the diva cup and changes 4-5 times per day on the first 1-2 days of her menses. Denies post-coital bleeding. Patient with dysuria at times (history of interstitial cystitis) and urinary frequency due to large intake of water. Patient also with constipation and rectal bleeding (followed by GI). Patient admitted for definitive surgical management via hysterectomy. Admission Exam (Per Admitting) Respiratory Auscultation: lungs clear to auscultation bilaterally Cardiovascular Rate/Rhythm: regular rate and regular rhythm Gastrointestinal (Abdomen) Inspection/Auscultation: abdomen normal to inspection Percussion/Palpation: abdomen soft Discharge Data Procedures Performed Operation Date: 06/12/18 08:15 Actual Procedures p Total Laparoscopic Hysterectomy, Bilateral Salpingectomy (Bilateral) - Tisha Grant Cystoscopy(Bilateral) - Tisha [place] Hospital Course (1) S/P laparoscopic hysterectomy: POD#1. Patient now tolerating regular diet. Pain controlled with NSAIDs and tylenol. Discharge home with instructions and medications. Discharge Instructions POST OPERATIVE: BOWEL FUNCTION/MEDICATIONS: 1. Constipation pain and discomfort are the most common complaints 5-7 days after surgery. Points 2-6 address the things that can help. 2. Chewing gum can help stimulate the gut and help improve digestion and motility. 3. Milk of Magnesia 1-2 times per day until return of bowel function. 4. Colace is a stool softener that helps. Taking this 2-3 times per day until bowel function returns to normal is highly recommended. 5. Dulcolax is a laxative that may be used if several days have passed without a bowel movement. Alternatively Miralax may be used daily instead. 6. Drink plenty of fluids as this will also reduce constipation. 7. Narcotic pain medications will be prescribed by your physician. They are safe to use and we encourage you to use them. If you are not allergic, ibuprofen will also be prescribed. Many patients will be able to transition off of the narcotic medications to ibuprofen by postoperative day 3. ACTIVITY RECOMMENDATIONS: 1. Get plenty of rest and listen to your body. If you are tired, take a nap. 2. You may shower, but do not take a tub bath until you see your doctor at the 2 week post operative visit. 3. Absolutely NO intercourse and nothing in the vagina until you are examined by your doctor at the 6 week visit. At that visit it will be determined when such activities can be resumed. This can range from 6-12 weeks after your surgery depending on healing time. 4. The main physical activity in the first week should be walking. By the second week you can slowly increase activity. There are no limits on walking up and down stairs. 5. Do not lift more than 5-10 lbs for 4 weeks. Remember the "one-handed rule", i.e. if you can lift something with only one hand it's likely okay. 6. Minimize health information managers like vacuuming and exercising for 4 weeks. "Overdoing it" can lead to incisions not healing, pain and vaginal bleeding, so again, listen to your body. 7. Driving can be resumed when you feel able. Do not drive within 24 hours of taking a narcotic medication. EXPECTATIONS: 1. Vaginal spotting, bleeding and discharge are common after surgery. There may even be an odor to the discharge which is often related to sutures used in the vagina. If you experience heavy vaginal bleeding, call the office number day or night [phone]. 2. Bladder discomfort is common after surgery from the catheter. This usually resolves in 1-2 weeks. 3. By the end of the 3rd or 4th week you should be feeling much better. It may take up to 6 weeks for your energy levels to return to normal. 4. Narcotic medications have side effects such as: dizziness, headache, nausea and/or vomiting. If you suspect your pain medication is causing problems, call our office and we may be able to prescribe an alternate medication. 5. The skin incisions are often covered with a liquid bandage. This will gradually peel off over time. CALL THE OFFICE IF YOU HAVE ANY OF THE FOLLOWIN. Temperature of 101 degrees or higher. 2. Severe abdominal or pelvic pain not relieved by pain medication. 3. Persistent nausea or vomiting. 4. Increased pain with urination or difficulty urinating. 5. Bright red bleeding that soaks more than 1 pad per hour. CONTACT PHONE NUMBERS: Main Office: [phone] Avoid all tobacco products. If you need help to stop smoking, call [place]'s FREE QUITLINE at . This is a free call.
[2018-06-13] MEDS: DOCUSATE SODIUM 100 MG CAP PO SCH (08:59)
--- NOTE | 2018-06-13 09:59 | Anesthesiology Progress Note ---
Date of Service June 13, 2018 Anesthesia Post Procedure Vital Signs Vital Signs: Temp Pulse Pulse Pulse Resp BP BP 06/13/18 08:49 36.8 C 66 82 68 16 131/84 125/82 06/13/18 07:30 36.8 C 82 16 131/84 06/13/18 03:30 36.8 C 68 20 125/82 06/12/18 23:45 37.0 C 64 18 144/93 H 06/12/18 19:25 36.9 C 65 20 133/87 06/12/18 16:20 36.8 C 66 18 141/102 H 06/12/18 15:20 36.5 C 83 18 137/97 06/12/18 14:20 36.6 C 72 16 131/88 06/12/18 13:50 36.6 C 78 18 147/90 H 06/12/18 13:20 36.5 C 81 16 147/97 H 06/12/18 13:00 62 16 136/86 06/12/18 12:50 62 12 139/98 06/12/18 12:40 37.2 C 59 L 17 139/88 06/12/18 12:30 59 L 12 145/95 H 06/12/18 12:20 62 16 149/92 H 06/12/18 12:10 62 12 161/100 H 06/12/18 12:00 36.2 C L 63 13 158/95 H 06/12/18 11:50 69 18 152/98 H 06/12/18 11:40 60 12 138/86 06/12/18 11:30 60 14 144/93 H 06/12/18 11:23 36.3 C L 83 15 135/92 Pulse Ox 06/13/18 08:49 98 06/13/18 07:30 98 06/13/18 03:30 98 06/12/18 23:45 98 06/12/18 19:25 99 06/12/18 16:20 98 06/12/18 15:20 99 06/12/18 14:20 98 06/12/18 13:50 100 06/12/18 13:20 100 06/12/18 13:00 99 06/12/18 12:50 99 06/12/18 12:40 100 06/12/18 12:30 98 06/12/18 12:20 100 06/12/18 12:10 99 06/12/18 12:00 100 06/12/18 11:50 100 06/12/18 11:40 100 06/12/18 11:30 06/12/18 11:23 100 Pain Intensity Generalized: Pain Intensity: 2 Abdomen: Pain Intensity: 0 Other: Pain Intensity: 0 Head: Pain Intensity: 0 Notes Mental Status: alert / awake / arousable and participated in evaluation Patient Amnestic to Procedure: Yes Nausea / Vomiting: adequately controlled Pain: adequately controlled Airway Patency, RR, SpO2: stable & adequate BP & HR: stable & adequate Hydration State: stable & adequate Anesthetic Complications: no major complications apparent and Pt Satisfied with anesthetic care Notes: Pt had a migraine that she contributed to her N&V post procedure, headache and N&V gone this am
== END 2018-06-13 09:50 | disposition home or self-care (01) ==
LOC: 4N 07:59 → ASU 07:59

== ENCOUNTER 2019-11-27 08:07 | Inpatient (IN) ==
--- OUTSIDE RECORDS SUMMARY | 2019-11-27 08:09 | External Medical Summary | Continuity of Care Document ---
:1985 Author Name Ceferino Collier Address Unavailable Unavailable , Care Team Providers Name Role Phone Unavailable Unavailable Unavailable PCP, UNKNOWN Unavailable Unavailable Problems Active medical history not documented Allergies and Adverse Reactions Allergy history not documented Medications Medications not documented Procedures Procedures not documented Immunizations Immunizations not documented Plan of Treatment Planned Observations Planned Goals not documented Results No Known Results Results not documented
[2019-11-27 08:51] LABS: Basophils # (auto) 0.07 K/uL (0-0.2); Basophils % (auto) 1.1 %; Eosinophils # (auto) 0.11 K/uL (0-0.5); Eosinophils % (auto) 1.7 %; Hematocrit (blood only) 29.9 % (37-47); Immature Granulocytes # (auto) 0.03 K/uL (0.00-0.02); Immature Granulocytes % (auto) 0.5 %; Lymphocytes # (auto) 2.08 K/uL (1.2-3.4); Lymphocytes % (auto) 32.7 %; Mean Corpuscular Hemoglobin 30.1 pg (25-34); Mean Corpuscular Hgb Conc 33.4 g/dL (32-36); Mean Corpuscular Volume 90.1 fL (80-100); Mean Platelet Volume 10.7 fL (7.4-10.4); Monocytes % (auto) 6.3 %; Neutrophils # (auto) 3.67 K/uL (1.4-6.5); Neutrophils % (auto) 57.7 %; Platelet Count 224 K/uL (130-400); RDW Coefficient of Variation 12.9 % (11.5-14.5); RDW Standard Deviation 42.2 fL (36.4-46.3); Red Blood Count 3.32 M/uL (4.2-5.4); White Blood Count 6.36 K/uL (4.8-10.8)
[2019-11-27 08:52] LABS: Appearance Urine Clear (Clear); Bilirubin Urine Negative (Negative); Blood Urine Negative (Negative); Color Urine Yellow; Glucose Urine UA Negative (Negative); Ketones Urine Negative (Negative); Leukocyte Esterase Urine Negative (Negative); Nitrite Urine Negative (Negative); Protein Urine Negative (Negative); Specific Gravity Urine 1.016 (1.000-1.030); Urobilinogen Urine Negative (Negative); pH Urine 7.5 (4.5-7.5)
[2019-11-27 09:09] LABS: Albumin Level 3.6 gm/dl (3.4-5.0); BUN Creatinine Ratio 12.7 (10-20); Calcium 7.8 mg/dl (8.5-10.1); Creatinine Clr Calc Pharmacy 89.9 ml/min; Est GFR (African American) 108.3; Est GFR (Non-African American) 93.4; Potassium 3.4 mmol/L (3.5-5.1)
[2019-11-27 09:13] LABS: Albumin Globulin Ratio 1.2 (0.9-2); Bilirubin,Total 0.2 mg/dl (0.2-1); Globulin 2.9 gm/dl (2.5-4.0); Total Protein 6.5 gm/dl (6.4-8.2)
--- NOTE | 2019-11-27 09:26 | XRay Report ---
SINGLE VIEW CHEST CLINICAL HISTORY: Generalized abdominal pain status post colonoscopy. FINDINGS: An AP, portable, upright chest radiograph is compared to study dated 08/22/2013. The cardiom ediastinal silhouette is unremarkable. The lungs and pleural spaces are clear. No pneumothorax is see n. The bony thorax is grossly intact. There is thoracic scoliosis. No evidence of intraperitoneal josué e air is seen below the diaphragm. IMPRESSION: No active disease in the chest. ACT 112: Negative or not required by law. Electronically signed by: Omar Caldera M.D. 11/27/2019 9:25 AM
--- NOTE | 2019-11-27 09:27 | XRay Report ---
KUB CLINICAL HISTORY: Generalized abdominal pain. Blood red blood per rectum status post colonoscopy. FINDINGS: An AP, portable, supine abdominal radiograph is correlated with abdominal CT dated 7. There is a nonobstructed abdominal bowel gas pattern. Mild fecal retention is noted in the left co wale. No evidence of intraperitoneal free air is seen on this supine image. There are no abnormal abdo coni calcifications. Phleboliths are noted in the left hemipelvis. The visualized bony structures ap pear intact. IMPRESSION: No acute abnormality is identified. Electronically signed by: Omar Caldera M.D. 11/27/2019 9:26 AM
--- NOTE | 2019-11-27 10:57 | History & Physical Report ---
Date of Service November 27, 2019 Assessment & Plan (1) GI bleeding: (2) Melena: (3) Hematochezia: Patient with persistent GI bleeding following colonoscopy. She has also had bloating, early satiety, and fatigue which was ongoing prior to the colonoscopy. Admit to Med/Surg with Tele Because patient has both melena & hematochezia, it seems likely that she will need EGD & repeat [place]. Will leave this up to GI. Possibility of upper and lower GI bleeding. GI consultation Start PPI- IV Protonix 40 mg BID for now. Change to PO after scopes NPO for now Add iron studies. Repeat CBC in AM NSS 100ml/hr while NPO Avoid NSAIDs (4) Hypokalemia: Potassium very slightly low on admission- 3.4. Will give 1 time dose KCl 10 mEq with NSS Repeat BMP in AM (5) Anxiety: Continue Prozac. (6) DVT prophylaxis: SCDs only for now with GI bleeding History of Present Illness Chief Complaint: GI Bleeding Primary Care Provider: Vadim Singh MD Patient is a 34 yo female presenting to the ED today for concerns of persistent GI bleeding following a colonoscopy. The patient had an outpatient colonoscopy completed on 11/22/[address] Hess. The scope showed one small aphthous ulcer in the ileum but was otherwise unrevealing. Random biopsies were performed which were normal & showed no signed of IBD. Since her scope, the patient has had continued abdominal pain, melena, and hematochezia. Her stools have been b lack/sticky, but she has also had bright red blood in and around the stool. She notes that she does also feel extremely full and bloated after eating a small amount. She does have mild GERD symptoms after eating. She does not take anything OTC for these symptoms. She denies dizziness, lightheadedness, SOB, LLANOS, but she has had increasing fatigue for months. She does have chronic migraines for which she uses Maxalt. She does also take Aleve at least twice per week for her migraines and fibromyalgia. Of note, the patient did also have an outpatient CT scan of the Abd/Pelvis WO contrast on 11/24/19 for renal stones. The scan showed B/L 5 mm or smaller intrarenal stones which are nonobstructing. No other abnormalities were noted. Since presentation to the ED, her Hgb was noted to be 10. Last outpatient Hgb was done on 05/26/18 and was 13.3 at the time. Her potassium was very slightly low at 3.4, and her calcium level was low at 7.8. Otherwise, labs are unrevealing. Urine sample was negative. FOBT pending. CXR and KUB were normal. Allergies Allergy/AdvReac Type Severity Reaction Status Date / Time nortriptyline AdvReac Verified 11/27/19 10:53 pregabalin [From Lyrica] AdvReac Seizure Verified 06/12/18 08:17 sumatriptan [From Imitrex] AdvReac vomiting Verified 11/27/19 10:53 Home Medications Home Medications Medication Instructions Recorded Confirmed Type rizatriptan [Maxalt] 10 mg PO UD PRN 05/19/18 11/27/19 History fluoxetine 20 mg PO HS 11/27/19 11/27/19 History melatonin 3 mg PO HS 11/27/19 11/27/19 History Past Med/Surg History Medical History (Updated 11/27/19 @ 11:19 by Tiki Aguilar PA-C) Abnormal uterine bleeding Acute costochondritis Anxiety Anxiety Chronic back pain Degenerative disc disease Depression Encounter for pre-operative examination Facial trauma Fibromyalgia GI bleeding History of IBS History of palpitations REMOTE; HX OF ARRHYTHMIA NOTED 15+ YEARS AGO; DENIES A. FIB/FLUTTER- NO ISSUES SINCE (NSR ON MOST RECENT EKG) Kidney calculi Migraine Migraine with aura Osteoarthritis Seizure Seizure 2014 X 1 FELT 2/2 MEDS AT THE TIME ([facility]); NO ISSUES SINCE Surgical History (Updated 11/27/19 @ 10:55 by Tiki Aguilar PA-C) Ear cysts REMOVAL BRANCHIAL CYST RIGHT EAR History of section X 2 History of cystoscopy 06/20/10= LMA#4 AT [facility] History of laparoscopy FOR ENDOMETRIOSIS History of tooth extraction WISDOM TEETH S/P laparoscopic hysterectomy Family History Mother Family history of diabetes mellitus Grandmother (Maternal) Family history of diabetes mellitus Social History Smoking Status: Current every day smoker Tobacco Type: E-cigarettes / Vaping Second Hand Exposure: No; Hx Alcohol Use: Yes Alcohol type: beer Hx Substance Use: No Preferred Language: [place] Communication Ability: Effective 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 Beliefs That Will Affect Care: None Current Living Situation: Spouse and Family Other Information That Helps Us Care for You: No Feels Safe at Home: Yes Safety Concerns: Feels Safe At This Time Review of Systems Review of Systems: All systems reviewed & are unremarkable except as noted in HPI & below Physical Exam Constitutional: WD/WN, vitals as above Eyes: PERRL, conjunctivae normal, anicteric sclerae ENMT: external ear and nose normal, oropharynx normal Neck: trachea midline, no thyromegaly Respiratory: normal respiratory effort, lungs clear to auscultation Cardiovascular: RRR, no murmur, no edema Gastrointestinal (Abdomen): Inspection/Auscultation: abdomen normal to inspection and normal bowel sounds; abdomen not distended Per cussion/Palpation: + abdomen tender (mid epigastric, LUQ, and LLQ tenderness) and abdomen soft; no guarding, abdomen not rigid and no abdominal mass Musculoskeletal: Head/Neck/Chest: normocephalic, head atraumatic and neck supple Extremities: extremities normal to inspection Skin: no rashes, warm and dry Psychiatric: A+Ox3, euthymic affect Results & Data Results & Data ([facility]) Vital Signs (Past 12 Hours) Vital Signs Temp Pulse Pulse Resp BP BP Pulse Ox 11/27/19 10:49 71 20 140/91 99 11/27/19 09:26 80 18 136/92 99 11/27/19 08:13 36.9 C 93 H 16 157/111 H 100 Laboratory Results Laboratory Results - last 24 hr 11/27/19 11/27/19 11/27/19 08:39 08:39 08:39 WBC 6.36 RBC 3.32 L Hgb 10.0 L Hct 29.9 L MCV 90.1 MCH 30.1 MCHC 33.4 RDW Std Deviation 42.2 RDW Coeff of Luli 12.9 Plt Count 224 MPV 10.7 H Immature Gran % (Auto) 0.5 Neut % (Auto) 57.7 Lymph % (Auto) 32.7 [place] % (Auto) 6.3 Eos % (Auto) 1.7 Baso % (Auto) 1.1 Neut # (Auto) 3.67 Lymph # (Auto) 2.08 [place] # (Auto) 0.40 Eos # (Auto) 0.11 Baso # (Auto) 0.07 Immature Gran # (Auto) 0.03 H Sodium 142 Potassium 3.4 L Chloride 107 Carbon Dioxide 28 Anion Gap 7.0 BUN 10 Creatinine 0.81 Est Cr Clr Drug Dosing 89.9 Est GFR ( Amer) 108.3 Est GFR (Non-Af Amer) 93.4 BUN/Creatinine Ratio 12.7 Glucose 71 Calcium 7.8 L Total Bilirubin 0.2 AST 13 L ALT 17 Alkaline Phosphatase 52 Total Protein 6.5 Albumin 3.6 Globulin 2.9 Albumin/Globulin Ratio 1.2 Urine Color Urine Appearance Urine pH Ur Specific [place] Urine Protein Urine Glucose (UA) Urine Ketones Urine Blood Urine Nitrite Urine Bilirubin Urine Urobilinogen Ur Leukocyte Esterase Blood Type A Positive Antibody Screen NEGATIVE 11/27/19 08:40 WBC RBC Hgb Hct MCV MCH MCHC RDW Std Deviation RDW Coeff of Luli Plt Count MPV Immature Gran % (Auto) Neut % (Auto) Lymph % (Auto) [place] % (Auto) Eos % (Auto) Baso % (Auto) Neut # (Auto) Lymph # (Auto) [place] # (Auto) Eos # (Auto) Baso # (Auto) Immature Gran # (Auto) Sodium Potassium Chloride Carbon Dioxide Anion Gap BUN Creatinine Est Cr Clr Drug Dosing Est GFR ( Amer) Est GFR (Non-Af Amer) BUN/Creatinine Ratio Glucose Calcium Total Bilirubin AST ALT Alkaline Phosphatase Total Protein Albumin Globulin Albumin/Globulin Ratio Urine Color Yellow Urine Appearance Clear Urine pH 7.5 Ur Specific [place] 1.016 Urine Protein Negative Urine Glucose (UA) Negative Urine Ketones Negative Urine Blood Negative Urine Nitrite Negative Urine Bilirubin Negative Urine Urobilinogen Negative Ur Leukocyte Esterase Negative Blood Type Antibody Screen Diagnostic Findings KUB X-RAY: IMPRESSION: No acute abnormality is identified. CHEST X-RAY: IMPRESSION: No active disease in the chest. Code Status & VTE Plan VTE Prophylaxis Plan VTE Prophylaxis will be ordered: Yes Supervising Physician Co-Signing Physician Notes I saw this patient with the physician commercial lending assistant, I participated in the history, physical, review of systems, and physical exam. I reviewed the medications with the patient and the physician commercial lending assistant and helped reconcile the medications. I helped take a detailed family and social history as well. I formulated the assessment and plan personally with the physician commercial lending assistant and went over it with the patient. ROS-No Headache, No Visual Changes, No Nausea, No Vomiting, No Fever, No Chills, No Neck Pain or Stiffness, No Chest Pain, No Palpitations, No SOB, No LLANOS, No Cough, No Sputum, No Wheezing, +Epigastric Abdominal Pain, No Diarrhea, No Hematemesis, No Hemoptysis, No Unexpected Weight Loss, No Flank pain, No Melena, +Hematochezia, No Frequency, No Urgency, No Burning, No Hematuria, No Rashes, No Diaphoresis. Early Satiety Physical Exam Gen-AAO x 3, NAD, Afebrile Head-NCAT, EOMI, PERRLA, Anicteric Sclera, No Posterior Pharyngeal Erythema Neck-Supple, No JVD, No Thyromegaly, No Masses, No LAD, No Bruits Lungs-Clear to Auscultation Bilaterally, No Rales, No Rhonchi, No Wheezing, No Crepitus Chest-No S4, +S1, +S2, No S3, No Murmurs, No Rubs, No Gallops, No Ectopy Abdomen-Soft, Bowel Sounds Present, Mildly Tender Epigastric area, Non Distended, No Hepatomegaly, No Splenomegaly, No Palpable Masses, No Rebound, No Rigidity, No Guarding Musculoskeletal-Full Range of Motion Bilaterally, No CVAT Extremities-No Cyanosis, No Clubbing, No Edema Nuero-Cranial Nerves II-XII grossly intact, Motor WNL, DTRs WNL, Strength WNL, Non Focal Psych-Normal Mood
[2019-11-27] MEDS ORDERED: POLYETHYLENE (MIRALAX) 17 GM PACK PO PRN (11:22)
[2019-11-27] MEDS ORDERED: POTASSIUM CHLORIDE 10 MEQ in SODIUM CHLORIDE 0.9% 1000ML 1,000 ML IV SCH (11:30)
[2019-11-27 11:33] LABS: Ferritin 23.6 ng/ml (8-388)
[2019-11-27] MEDS: PANTOprazole 40 MG in SYRINGE 0 ML IV SCH ×2 (12:17→20:32)
--- NOTE | 2019-11-27 13:51 | Emergency Department Note ---
History of Present Illness General Chief complaint: Rectal Bleed Stated complaint: BLEEDING COMPLICATION POST COLONOSCOPY Time Seen by Provider: 11/27/19 08:30 Source: patient, family and RN notes reviewed Mode of arrival: ambulatory Limitations: no limitations History of Present Illness Provider complaint: GI bleed Maximum Pain Intensity: 3 This patient is a 34-year-old female who presents emergency department with complaints of blood in the stools. Patient states she had a colonoscopy performed last week with Dr. Hess. She contacted his office yesterday regarding continued dark stools and occasional bright red blood. Patient states she feels somewhat bloated/pain in the lower abdomen. She denies any vomiting, fevers. She states she has had a CT scan of the abdomen pelvis without contrast as an outpatient since the colonoscopy. She states kidney stones were noted up in the kidney but no other abnormalities were identified. Dr. Hess sent the patient in for evaluation. Home Medications Home Medications Medication Instructions Recorded Confirmed Type rizatriptan [Maxalt] 10 mg PO UD PRN 05/19/18 11/27/19 History fluoxetine 20 mg PO HS 11/27/19 11/27/19 History melatonin 3 mg PO HS 11/27/19 11/27/19 History Allergies Allergy/AdvReac Type Severity Reaction Status Date / Time nortriptyline AdvReac Verified 11/27/19 10:53 pregabalin [From Lyrica] AdvReac Seizure Verified 06/12/18 08:17 sumatriptan [From Imitrex] AdvReac vomiting Verified 11/27/19 10:53 Past Med/Surg History Medical History Abnormal uterine bleeding Acute costochondritis Anxiety Anxiety Chronic back pain Degenerative disc disease Depression Encounter for pre-operative examination Facial trauma Fibromyalgia GI bleeding History of IBS History of palpitations REMOTE; HX OF ARRHYTHMIA NOTED 15+ YEARS AGO; DENIES A. FIB/FLUTTER- NO ISSUES SINCE (NSR ON MOST RECENT EKG) Kidney calculi Migraine Migraine with aura Osteoarthritis Seizure Seizure 2014 X 1 FELT 2/2 MEDS AT THE TIME ([place]); NO ISSUES SINCE Surgical History Ear cysts REMOVAL BRANCHIAL CYST RIGHT EAR History of section X 2 History of cystoscopy 06/20/10= LMA#4 AT [facility] History of laparoscopy FOR ENDOMETRIOSIS History of tooth extraction WISDOM TEETH S/P laparoscopic hysterectomy Family History Mother Family history of diabetes mellitus Grandmother (Maternal) Family history of diabetes mellitus Social History Smoking Status: Current every day smoker Tobacco Type: E-cigarettes / Vaping Second Hand Exposure: No; Hx Alcohol Use: Yes Alcohol type: beer Hx Substance Use: No Preferred Language: [place] Communication Ability: Effective 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 and A total of 10 systems reviewed and were otherwise negative Physical Exam Vital Signs Vital Signs - 24 hr 11/27/19 08:13 11/27/19 09:26 Temperature 36.9 C Temperature Source Oral Pulse Rate 93 H Pulse Rate [Left Finger] 80 Respiratory Rate 16 18 Respiratory Effort / Characteristics Non-Labored Spontaneous Non-Labored Respiratory Depth Normal Normal Blood Pressure 157/111 H Blood Pressure [Left Arm] 136/92 Blood Pressure Mean 126 Blood Pressure Mean [Left Arm] 106 Blood Pressure Position Sitting Pulse Oximetry 100 99 Oxygen Delivery Method Room Air Room Air Sepsis Recent Fever Within 48 Hours No Sepsis New/Unexplained Change in Mental Status No Sepsis Action Taken by Nursing No Action Required Vital signs reviewed. General: Well-appearing 34-year-old female, in no significant distress. HEENT: No scleral icterus, PERRLA, neck supple. Atraumatic. Cardiovascular: Regular rate and rhythm, no extra sounds. Pulmonary: Clear to auscultation bilaterally, normal work of breathing. Abdomen: Soft, mild lower/suprapubic abdominal tenderness, no rebound/guarding, nondistended, positive bowel sounds. Rectal: Negative for gross blood, guaiac positive. Normal external mucosa. Musculoskeletal: Atraumatic, no peripheral edema. Neurologic: Patient awake alert and oriented x 3 Skin: Warm, dry, no rash Course Administered Medications Pantoprazole Sodium 40 mg/ (Syringe) 10 mls @ 5 mls/min IV BID MARK Stop: 12/27/19 10:59 Last Admin: 11/27/19 12:17 Dose: 5 mls/min Documented by: [id number] Potassium Chloride 10 meq/ (Sodium Chloride) 1,005 mls @ 100 mls/hr IV .Q10H3M MARK Stop: 11/27/19 21:32 Last Admin: 11/27/19 12:17 Dose: 100 mls/hr Documented by: [id number] Medical Decision Making Differential Diagnosis Differential diagnosis: Etiologies such as mucosal tear, esophagitis, variceal bleed, Boerhaaves, Kenedy-Cheung tear, gastritis, peptic ulcer disease, AVM, inflammatory bowel disease, ischemia, diverticulosis, colitis, malignancy, coagulopathy, thrombocytopenia, fissure, hemorrhoid as well as others were entertained. Home Medications Current Medication List: was personally reviewed by me Laboratory Data Attestation: I reviewed the patient's lab results. Result diagrams: 11/27/19 08:39 11/27/19 08:39 Lab Results 11/27/19 11/27/19 11/27/19 Range/Units 08:39 08:39 08:39 WBC 6.36 (4.8-10.8) K/uL RBC 3.32 L (4.2-5.4) M/uL Hgb 10.0 L (12.0-16.0) g/dL Hct 29.9 L (37-47) % MCV 90.1 (80-100) fL MCH 30.1 (25-34) pg MCHC 33.4 (32-36) g/dL RDW Std Deviation 42.2 (36.4-46.3) fL RDW Coeff of Luli 12.9 (11.5-14.5) % Plt Count 224 (130-400) K/uL MPV 10.7 H (7.4-10.4) fL Immature Gran % (Auto) 0.5 % Neut % (Auto) 57.7 % Lymph % (Auto) 32.7 % [place] % (Auto) 6.3 % Eos % (Auto) 1.7 % Baso % (Auto) 1.1 % Neut # (Auto) 3.67 (1.4-6.5) K/uL Lymph # (Auto) 2.08 (1.2-3.4) K/uL [place] # (Auto) 0.40 (0.11-0.59) K/uL Eos # (Auto) 0.11 (0-0.5) K/uL Baso # (Auto) 0.07 (0-0.2) K/uL Immature Gran # (Auto) 0.03 H (0.00-0.02) K/uL Sodium 142 (136-145) mmol/L Potassium 3.4 L (3.5-5.1) mmol/L Chloride 107 (98-107) mmol/L Carbon Dioxide 28 (21-32) mmol/L Anion Gap 7.0 (3-11) BUN 10 (7-18) mg/dl Creatinine 0.81 (0.6-1.2) mg/dl Est Cr Clr Drug Dosing 89.9 ml/min Est GFR ( Amer) 108.3 Est GFR (Non-Af Amer) 93.4 BUN/Creatinine Ratio 12.7 (10-20) Glucose 71 (70-99) mg/dl Calcium 7.8 L (8.5-10.1) mg/dl Iron (35-150) mcg/dl TIBC (250-450) mcg/dl Ferritin (8-388) ng/ml Total Bilirubin 0.2 (0.2-1) mg/dl AST 13 L (15-37) U/L ALT 17 (12-78) U/L Alkaline Phosphatase 52 (45-117) U/L Total Protein 6.5 (6.4-8.2) gm/dl Albumin 3.6 (3.4-5.0) gm/dl Globulin 2.9 (2.5-4.0) gm/dl Albumin/Globulin Ratio 1.2 (0.9-2) Urine Color Urine Appearance (Clear) Urine pH (4.5-7.5) Ur Specific [place] (1.000-1.030) Urine Protein (Negative) Urine Glucose (UA) (Negative) Urine Ketones (Negative) Urine Blood (Negative) Urine Nitrite (Negative) Urine Bilirubin (Negative) Urine Urobilinogen (Negative) Ur Leukocyte Esterase (Negative) Blood Type A Positive Antibody Screen NEGATIVE 11/27/19 11/27/19 Range/Units 08:40 08:43 WBC (4.8-10.8) K/uL RBC (4.2-5.4) M/uL Hgb (12.0-16.0) g/dL Hct (37-47) % MCV (80-100) fL MCH (25-34) pg MCHC (32-36) g/dL RDW Std Deviation (36.4-46.3) fL RDW Coeff of Luli (11.5-14.5) % Plt Count (130-400) K/uL MPV (7.4-10.4) fL Immature Gran % (Auto) % Neut % (Auto) % Lymph % (Auto) % [place] % (Auto) % Eos % (Auto) % Baso % (Auto) % Neut # (Auto) (1.4-6.5) K/uL Lymph # (Auto) (1.2-3.4) K/uL [place] # (Auto) (0.11-0.59) K/uL Eos # (Auto) (0-0.5) K/uL Baso # (Auto) (0-0.2) K/uL Immature Gran # (Auto) (0.00-0.02) K/uL Sodium (136-145) mmol/L Potassium (3.5-5.1) mmol/L Chloride (98-107) mmol/L Carbon Dioxide (21-32) mmol/L Anion Gap (3-11) BUN (7-18) mg/dl Creatinine (0.6-1.2) mg/dl Est Cr Clr Drug Dosing ml/min Est GFR ( Amer) Est GFR (Non-Af Amer) BUN/Creatinine Ratio (10-20) Glucose (70-99) mg/dl Calcium (8.5-10.1) mg/dl Iron 51 (35-150) mcg/dl TIBC 350 (250-450) mcg/dl Ferritin 23.6 (8-388) ng/ml Total Bilirubin (0.2-1) mg/dl AST (15-37) U/L ALT (12-78) U/L Alkaline Phosphatase (45-117) U/L Total Protein (6.4-8.2) gm/dl Albumin (3.4-5.0) gm/dl Globulin (2.5-4.0) gm/dl Albumin/Globulin Ratio (0.9-2) Urine Color Yellow Urine Appearance Clear (Clear) Urine pH 7.5 (4.5-7.5) Ur Specific [place] 1.016 (1.000-1.030) Urine Protein Negative (Negative) Urine Glucose (UA) Negative (Negative) Urine Ketones Negative (Negative) Urine Blood Negative (Negative) Urine Nitrite Negative (Negative) Urine Bilirubin Negative (Negative) Urine Urobilinogen Negative (Negative) Ur Leukocyte Esterase Negative (Negative) Blood Type Antibody Screen Imaging Data Radiologist's Impression: KUB CLINICAL HISTORY: Generalized abdominal pain. Blood red blood per rectum status post colonoscopy. FINDINGS: An AP, portable, supine abdominal radiograph is correlated with abdominal CT dated 08/31/2016. There is a nonobstructed abdominal bowel gas pattern. Mild fecal retention is noted in the left colon. No evidence of intraperitoneal free air is seen on this supine image. There are no abnormal abdominal calcifications. Phleboliths are noted in the left hemipelvis. The visualized bony structures appear intact. IMPRESSION: No acute abnormality is identified. Electronically signed by: Omar Caldera M.D. 11/27/2019 9:26 AM Dictated: 11/27/19924 Transcribed: 11/27/19924 SINGLE VIEW CHEST CLINICAL HISTORY: Generalized abdominal pain status post colonoscopy. FINDINGS: An AP, portable, upright chest radiograph is compared to study dated 08/22/2013. The cardiomediastinal silhouette is unremarkable. The lungs and pleural spaces are clear. No pneumothorax is seen. The bony thorax is grossly intact. There is thoracic scoliosis. No evidence of intraperitoneal free air is seen below the diaphragm. IMPRESSION: No active disease in the chest. ACT 112: Negative or not required by law. Electronically signed by: Omar Caldera M.D. 11/27/2019 9:25 AM Dictated: 11/27/19923 Transcribed: 11/27/19923 Blood Pressure Blood Pressure Findings: Normal blood pressure Blood Pressure Disposition: did not require urgent referral MDM Narrative This patient was evaluated and appeared to be in no significant distress. Physical examination is consistent with bleeding from the rectum. IV access was obtained and laboratory work was drawn. An order for cardiac monitoring was placed to the patient is noted to be in a normal sinus rhythm at 80 bpm. IV fluids were initiated. The patient's laboratory work reveals a hemoglobin of 10. This is a drop from her baseline of approximately 2-3 points. KUB and chest x-ray showed no evidence of free air. This is consistent with what is reported on her outpatient CT scan. The patient remained stable and the case was discussed with Dr. Hess. He has requested that the patient be admitted to the hospitalist service for repeat colonoscopy to identify the source of the bleed. Patient and were made aware of the plan and agree. Impression & Plan GI bleeding, Status post colonoscopy Discharge Plan Visit Data Chief Complaint: Rectal Bleed Stated Complaint: BLEEDING COMPLICATION POST COLONOSCOPY ED Provider: Mikki Kwong Discharge Problem: GI bleeding, Status post colonoscopy Patient Disposition: Admitted As Inpatient Discharge Instructions Interventions: ED Discharge Assessment Last Done: 11/27/19 11:01 Discharge Problem: GI bleeding Qualifiers: GI bleed type/associated pathology: anorectal hemorrhage Qualified Code(s): K62.5 - Hemorrhage of anus and rectum
[2019-11-27] MEDS: ACETAMINOPHEN 325 MG TAB PO PRN (15:01)
[2019-11-27] MEDS ORDERED: RIZATRIPTAN BENZOATE 10 MG TAB PO ONE (16:26)
[2019-11-27] MEDS ORDERED: METOCLOPRAMIDE HCL INJ 5 MG/ML 2 ML VIAL IV ONE (16:28)
[2019-11-27] MEDS ORDERED: LAVAGE SOLUTION 4000ML PO SCH (16:30)
--- NOTE | 2019-11-27 16:35 | History & Physical Report ---
Date of Service November 27, 2019 Assessment & Plan Admission and Anticipated Discharge Date Admission Date: November 27, 2019 History of Present Illness Primary Care Provider: Vadim Singh MD HPI: 34 yo female with no sig PMH admit with 5 d h/o dark foul smelling stool, also hematochezia since cscopy on Friday. Csocpy was done for abdominal pain, and was unremarkable although did show single aphthous ulcer in the ileum; random bx done which were unremarkable. On admit, BP normal, hgb 10 with normal MCV. She has had single episode of dark black stool with slight reddish tinge since admit. Of note, she reports h/o heavy menstrual bleeding, as well as bleeding with C section and hysterectomy. + NSAIDs. CT done on 11/23 without contrast for chronic RUQ flank pain did not show GI pathology. PE: comfortable, pleasant VSS afeb CV: RRR Resp: CTA Abd: soft NT Labs reviewed - hgb 10, BUN WNL. A/P: GI bleed, s/p recent unremarkable csocpy - Will plan EGD f/o NSAID related PUD, csocpy to r/o bleeding from bx sites. Procedures scheduled for tomorrow am. Allergies Allergy/AdvReac Type Severity Reaction Status Date / Time nortriptyline AdvReac Verified 11/27/19 10:53 pregabalin [From Lyrica] AdvReac Seizure Verified 06/12/18 08:17 sumatriptan [From Imitrex] AdvReac vomiting Verified 11/27/19 10:53 Home Medications Home Medications Medication Instructions Recorded Confirmed Type rizatriptan [Maxalt] 10 mg PO UD PRN 05/19/18 11/27/19 History fluoxetine 20 mg PO HS 11/27/19 11/27/19 History melatonin 3 mg PO HS 11/27/19 11/27/19 History Past Med/Surg History Medical History Abnormal uterine bleeding Acute costochondritis Anxiety Anxiety Chronic back pain Degenerative disc disease Depression Encounter for pre-operative examination Facial trauma Fibromyalgia GI bleeding History of IBS History of palpitations REMOTE; HX OF ARRHYTHMIA NOTED 15+ YEARS AGO; DENIES A. FIB/FLUTTER- NO IS SUES SINCE (NSR ON MOST RECENT EKG) Kidney calculi Migraine Migraine with aura Osteoarthritis Seizure Seizure 2015 X 1 FELT 2/2 MEDS AT THE TIME ([place]); NO ISSUES SINCE Surgical History Ear cysts REMOVAL BRANCHIAL CYST RIGHT EAR History of section X 2 History of cystoscopy 06/20/10= LMA#4 AT [facility] History of laparoscopy FOR ENDOMETRIOSIS History of tooth extraction WISDOM TEETH S/P laparoscopic hysterectomy Family History Mother Family history of diabetes mellitus Grandmother (Maternal) Family history of diabetes mellitus Social History Smoking Status: Current every day smoker Tobacco Type: E-cigarettes / Vaping Second Hand Exposure: No; Hx Alcohol Use: Yes Alcohol type: beer Hx Substance Use: No Preferred Language: Kiswahili Communication Ability: Effective Staffing Mgr Required: No Beliefs That Will Affect Care: None Current Living Situation: Spouse and Family Other Information That Helps Us Care for You: No Feels Safe at Home: Yes Safety Concerns: Feels Safe At This Time Results & Data ([facility]) Vital Signs (Past 12 Hours) Vital Signs Temp Pulse Pulse Resp BP BP Pulse Ox 11/27/19 15:20 36.8 C 66 18 151/93 H 100 11/27/19 10:49 71 20 140/91 99 11/27/19 09:26 80 18 136/92 99 11/27/19 08:13 36.9 C 93 H 16 157/111 H 100 Code Status & VTE Plan VTE Prophylaxis Plan VTE Prophylaxis will be ordered: Yes
[2019-11-27] MEDS: MELATONIN 3 MG TAB PO SCH (20:31)
[2019-11-27] MEDS: FLUOXETINE HCL 20 MG CAP PO SCH (20:32)
[2019-11-28 06:51] LABS: Hematocrit (blood only) 27.9 % (37-47); Hemoglobin 9.4 g/dL (12.0-16.0); Mean Corpuscular Hemoglobin 30.4 pg (25-34); Mean Corpuscular Hgb Conc 33.7 g/dL (32-36); Mean Corpuscular Volume 90.3 fL (80-100); Mean Platelet Volume 10.7 fL (7.4-10.4); Platelet Count 231 K/uL (130-400); RDW Standard Deviation 41.8 fL (36.4-46.3); Red Blood Count 3.09 M/uL (4.2-5.4); White Blood Count 5.52 K/uL (4.8-10.8)
--- NOTE | 2019-11-28 07:16 | History & Physical Bridge Note ---
Date of Service November 28, 2019 History & Physical Bridge Note I have examined the patient, reviewed the History & Physical and in the interval since the performance of the History & Physical I have noted the following changes of clinical significance: no changes noted
--- NOTE | 2019-11-28 07:17 | History & Physical Report ---
Date of Service November 28, 2019 Assessment & Plan Admission and Anticipated Discharge Date Admission Date: November 27, 2019 History of Present Illness Primary Care Provider: Vadim Singh MD No complaints CV: RRR Resp: CTA Abd: soft Labs: Hgb 9.4 A/p: EGD/csocpy today Allergies Allergy/AdvReac Type Severity Reaction Status Date / Time nortriptyline AdvReac Verified 11/27/19 10:53 pregabalin [From Lyrica] AdvReac Seizure Verified 06/12/18 08:17 sumatriptan [From Imitrex] AdvReac vomiting Verified 11/27/19 10:53 Home Medications Home Medications Medication Instructions Recorded Confirmed Type rizatriptan [Maxalt] 10 mg PO UD PRN 05/19/18 11/27/19 History fluoxetine 20 mg PO HS 11/27/19 11/27/19 History melatonin 3 mg PO HS 11/27/19 11/27/19 History Past Med/Surg History Medical History Abnormal uterine bleeding Acute costochondritis Anxiety Anxiety Chronic back pain Degenerative disc disease Depression Encounter for pre-operative examination Facial trauma Fibromyalgia GI bleeding History of IBS History of palpitations REMOTE; HX OF ARRHYTHMIA NOTED 15+ YEARS AGO; DENIES A. FIB/FLUTTER- NO ISSUES SINCE (NSR ON MOST RECENT EKG) Kidney calculi Migraine Migraine with aura Osteoarthritis Seizure Seizure 2014 X 1 FELT 2/2 MEDS AT THE TIME ([place]); NO ISSUES SINCE Surgical History Ear cysts REMOVAL BRANCHIAL CYST RIGHT EAR History of section X 2 History of cystoscopy 06/20/10= LMA#4 AT [facility] History of laparoscopy FOR ENDOMETRIOSIS History of tooth extraction WISDOM TEETH S/P laparoscopic hysterectomy Family History Mother Family history of diabetes mellitus Grandmother (Maternal) Family history of diabetes mellitus Social History Smoking Status: Current every day smoker Tobacco Type: E-cigarettes / Vaping Second Hand Exposure: No; Hx Alcohol Use: Yes Alcohol type: beer Hx Substance Use: No Preferred Language: Algerian Communication Ability: Effective Supervisor Case Loading Required: No Beliefs That Will Affect Care: None Current Living Situation: Spouse and Family Other Information That Helps Us Care for You: No Feels Safe at Home: Yes Safety Concerns: Feels Safe At This Time Results & Data ([facility]) Vital Signs (Past 12 Hours) Vital Signs Temp Pulse Pulse Resp BP Pulse Ox 11/28/19 07:06 60 11/28/19 03:00 36.6 C 60 20 118/78 99 11/28/19 00:57 58 L 11/27/19 22:00 36.7 C 55 L 18 145/89 H 99 Code Status & VTE Plan VTE Prophylaxis Plan VTE Prophylaxis will be ordered: Yes
[2019-11-28 07:30] LABS: BUN Creatinine Ratio 8.3 (10-20); Calcium 8.4 mg/dl (8.5-10.1); Creatinine Clr Calc Pharmacy 93.3 ml/min; Est GFR (African American) 113.4; Est GFR (Non-African American) 97.8; Potassium 3.3 mmol/L (3.5-5.1)
[2019-11-28] MEDS ORDERED: LIDOCAINE HCL 2% 2 ML VIAL/AMP(20MG/ML) INFIL ONE (07:33)
[2019-11-28] MEDS ORDERED: PROPOFOL IV EMULSION 10 MG/ML 20 ML VIAL IV ONE ×4 (07:33→09:07)
--- NOTE | 2019-11-28 07:42 | Anesthesiology Consultation ---
Date of Service November 28, 2019 Assessment & Plan ASA ASA2E Proposed Anesthesia Anesthesia Type: MAC Risk / Benefits Reviewed With: PT / POA / Parent / Guardian, Accepts Plan and Informed Consent Obtained History Surgery Operation Date: 11/28/19 07:30 Proposed Procedures p Esophagogastroduodenoscopy Dr Israel suh Colonoscopy - Mario Hess Height/Weight Height: 5 ft 6 in Weight: 62.3 kg Allergies Allergy/AdvReac Type Severity Reaction Status Date / Time nortriptyline AdvReac Verified 11/27/19 10:53 pregabalin [From Lyrica] AdvReac Seizure Verified 06/12/18 08:17 sumatriptan [From Imitrex] AdvReac vomiting Verified 11/27/19 10:53 Medications Home Medications Medication Instructions Recorded Confirmed Last Taken rizatriptan [Maxalt] 10 mg PO UD PRN 05/19/18 11/27/19 11/26/19 18:00 fluoxetine 20 mg PO HS 11/27/19 11/27/19 11/26/19 melatonin 3 mg PO HS 11/27/19 11/27/19 11/26/19 Active Medications Generic Name Dose Route Start Last Admin Trade Name Freq PRN Reason Stop Dose Admin Acetaminophen 650 mg 11/27/19 11:22 11/27/19 15:01 Acetaminophen 325 Mg Tab PO 12/27/19 11:21 650 mg Q4H PRN Administration pain/fever Fluoxetine HCl 20 mg 11/27/19 21:00 11/27/19 20:32 Fluoxetine Hcl 20 Mg Cap PO 12/27/19 20:59 20 mg HS MARK Administration Pantoprazole Sodium 40 mg/ 10 mls @ 5 mls/min 11/27/19 11:00 11/27/19 20:32 Syringe IV 12/27/19 10:59 5 mls/min BID MARK Administration Melatonin 3 mg 11/27/19 21:00 11/27/19 20:31 Melatonin 3 Mg Tab PO 12/27/19 20:59 Not Given HS MARK Polyethylene Glycol/Electrolytes 4 dose 11/27/19 16:30 11/27/19 17:01 Lavage Solution 4000ml PO 12/27/19 16:29 4 dose 1630 MARK Administration NPO Date Last Intake of Fluids: 11/26/19 Time Last Intake of Fluids: 19:00 Date Last Intake of Solids: 11/26/19 Time Last Intake of Solids: 19:00 Past Medical History Medical History Abnormal uterine bleeding Acute costochondritis Anxiety Anxiety Chronic back pain Degenerative disc disease Depression Encounter for pre-operative examination Facial trauma Fibromyalgia GI bleeding History of IBS History of palpitations REMOTE; HX OF ARRHYTHMIA NOTED 15+ YEARS AGO; DENIES A. FIB/FLUTTER- NO ISSUES SINCE (NSR ON MOST RECENT EKG) Kidney calculi Migraine Migraine with aura Osteoarthritis Seizure Seizure 2015 X 1 FELT 2/2 MEDS AT THE TIME ([place]); NO ISSUES SINCE Exercise / Class Metabolic Activity II 4-5 Yardwork/Stairs/Walk up hill Past Family History Family History Mother Family history of diabetes mellitus Grandmother (Maternal) Family history of diabetes mellitus Past Surgical History Surgical History Ear cysts REMOVAL BRANCHIAL CYST RIGHT EAR History of section X 2 History of cystoscopy 06/20/10= LMA#4 AT [facility] History of laparoscopy FOR ENDOMETRIOSIS History of tooth extraction WISDOM TEETH S/P laparoscopic hysterectomy Past Anesthesia History No Hx of Anesthesia Complications and No Family Hx of Anesthesia Complications History of PONV No Hx of PONV and No Hx of Motion Sickness Social History Smoking Status: Current every day smoker tobacco type: e-cigarettes Hx Alcohol Use: Yes Alcohol type: beer alcohol intake frequency: a few times a month Hx Substance Use: No Review of Systems denies fever/cough/ colds/ chest pain/ SOB/ JALEN Constitutional: no fever and no chills Respiratory: no cough and no dyspnea denies JALEN Cardiovascular: no chest pain and no dyspnea on exertion Physical Exam Vital Signs Last Vital Signs Temp 36.8 C 11/28/19 07:17 Pulse 66 11/28/19 07:17 Resp 18 11/28/19 07:17 BP 143/90 H 11/28/19 07:17 Pulse Ox 99 11/28/19 07:17 ENMT Mouth: no TMJ abnormality and no dentition abnormality Thyromental Distance: > or= 3.5 Finger Breadths Mallampati Class: II Neck neck extension not limited Respiratory normal respiratory effort; no respiratory distress Auscultation: lungs clear to auscultation bilaterally Cardiovascular Rate/Rhythm: regular rate and regular rhythm Neurologic moves all extremities Psychiatric Orientation: alert and oriented x 3 Testing Laboratory Results 11/28/19 06:11 11/28/19 06:11 Urine Color Yellow 11/27/19 08:40 Urine Appearance Clear (Clear) 11/27/19 08:40 Urine pH 7.5 (4.5-7.5) 11/27/19 08:40 Ur Specific [place] 1.016 (1.000-1.030) 11/27/19 08:40 Urine Protein Negative (Negative) 11/27/19 08:40 Urine Glucose (UA) Negative (Negative) 11/27/19 08:40 Urine Ketones Negative (Negative) 11/27/19 08:40 Urine Nitrite Negative (Negative) 11/27/19 08:40 Ur Leukocyte Esterase Negative (Negative) 11/27/19 08:40 Blood Type A Positive 11/27/19 08:39 Antibody Screen NEGATIVE 11/27/19 08:39
[2019-11-28] MEDS ORDERED: ePHEDrine sulfate 50 MG/ML AMP IV PRN (08:51)
[2019-11-28] MEDS ORDERED: ATROPINE SULFATE 0.1 MG/ML 10ML SYR IV PRN (08:51)
--- NOTE | 2019-11-28 09:05 | GI REPORT ---
Patient Name: Bella Christopher Procedure Date: 11/28/2019 7:18 AM Date of : 1985 Admit Type: Inpatient Age: 34 Gender: Female Attending MD: Mario Hess MD Procedure: Colonoscopy Providers: Mario Hess MD Referring MD: Alma Rosa Escobar Indications: Hematochezia, Melena Medicines: See the Anesthesia note for documentation of the administered medications Complications: No immediate complications. Estimated Blood Loss: Estimated blood loss: none. Procedure: Pre-Anesthesia Assessment: - ASA Grade Assessment: II - A patient with mild systemic disease. After I obtained informed consent, the scope was passed under direct vision. Throughout the procedure, the patient's blood pressure, pulse, and oxygen saturations were monitored continuously. The Scope was introduced through the anus and advanced to the terminal ileum. The colonoscopy was performed without difficulty. The patient tolerated the procedure well. The quality of the bowel preparation was good. Findings: The perianal and digital rectal examinations were normal. There was a large amount of brown stool in the distal colon and bilious fluid in the proximal colon. There was no evidence of active bleeding. There were two small clean based ulcers, one in the descending colon and one at the splenic flexure that likely correspond to prior biopsy sites. There was a faint flat pigmented spot at the ulcer at the splenic flexure, and this was clipped. The remainder of the colon was normal. There was a small clean based ulcer in the ileum. There was bilious fluid in the ileum. The remainder of the ileum was normal. Impression: - No active bleeding. Two ulcers in the colon without high risk stigmata, one clipped. Ulcer in TI without high risk stigmata. Recommendation: - Discharge patient to floor. - Resume diet. Plan for observation for one more day. - Plan for discharge tomorrow if no evidence of recurrent bleeding. Outpatient hematology follow up to evaluate for possible bleeding diathesis. Mario Hess M.D. Mario Hess MD 11/28/2019 9:04:35 AM This report has been signed electronically. Note Initiated On: 11/28/2019 7:18 AM Number of Addenda: 0 I attest to the content of the Intraoperative Record and orders documented therein, exceptions below {[id number]}
--- NOTE | 2019-11-28 09:07 | GI REPORT ---
Patient Name: Bella Christopher Procedure Date: 11/28/2019 7:19 AM Date of : 1985 Admit Type: Inpatient Age: 34 Gender: Female Attending MD: Mario Hess MD Procedure: Upper GI endoscopy Providers: Mario Hess MD Referring MD: Alma Rosa Escobar Indications: Abdominal pain, Melena Medicines: See the Anesthesia note for documentation of the administered medications Complications: No immediate complications. Estimated Blood Loss: Estimated blood loss: none. Procedure: Pre-Anesthesia Assessment: - ASA Grade Assessment: II - A patient with mild systemic disease. After obtaining informed consent, the endoscope was passed under direct vision. Throughout the procedure, the patient's blood pressure, pulse, and oxygen saturations were monitored continuously. The Endoscope was introduced through the mouth, and advanced to the second part of duodenum. The upper GI endoscopy was accomplished without difficulty. The patient tolerated the procedure well. Findings: The examined esophagus was normal. The stomach was normal. The examined duodenum was normal. Impression: - Normal esophagus. - Normal stomach. - Normal examined duodenum. - No specimens collected. Recommendation: - Discharge patient to floor. D/c PPI therapy. Gastric emptying study. Begin iron/folate. Begin diet. Anticipate discharge tomorrow. May consider VCE as outpt. Mario Hess M.D. Mario Hess MD 11/28/2019 9:07:15 AM This report has been signed electronically. Note Initiated On: 11/28/2019 7:19 AM Number of Addenda: 0 I attest to the content of the Intraoperative Record and orders documented therein, exceptions below {[id number]}
--- NOTE | 2019-11-28 09:14 | Anesthesiology Progress Note ---
Date of Service November 28, 2019 Anesthesia Post Procedure Vital Signs Vital Signs: Temp Pulse Pulse Pulse Resp BP BP 11/28/19 09:02 36.2 C L 81 16 139/86 11/28/19 07:17 36.8 C 66 18 143/90 H 11/28/19 07:06 60 11/28/19 03:00 36.6 C 60 20 118/78 11/28/19 00:57 58 L 11/27/19 22:00 36.7 C 55 L 18 145/89 H 11/27/19 16:52 72 11/27/19 15:20 36.8 C 66 18 151/93 H 11/27/19 10:49 71 20 140/91 11/27/19 09:26 80 18 136/92 Pulse Ox 11/28/19 09:02 100 11/28/19 07:17 99 11/28/19 07:06 11/28/19 03:00 99 11/28/19 00:57 11/27/19 22:00 99 11/27/19 16:52 11/27/19 15:20 100 11/27/19 10:49 99 11/27/19 09:26 99 Pain Intensity Abdomen: Pain Intensity: 2 Transfer of Care Handoff Completed per policy Notes Mental Status: alert / awake / arousable and participated in evaluation Patient Amnestic to Procedure: Yes Nausea / Vomiting: adequately controlled Pain: adequately controlled Airway Patency, RR, SpO2: stable & adequate BP & HR: stable & adequate Hydration State: stable & adequate Anesthetic Complications: no major complications apparent and Pt Satisfied with anesthetic care
[2019-11-28] MEDS: PANTOprazole 40 MG in SYRINGE 0 ML IV SCH (09:25)
[2019-11-28] MEDS ORDERED: RIZATRIPTAN BENZOATE 10 MG TAB PO PRN (10:26)
[2019-11-28] MEDS: ACETAMINOPHEN 325 MG TAB PO PRN (10:43)
[2019-11-28 11:04] LABS: Appearance Urine Clear (Clear); Bilirubin Urine Negative (Negative); Blood Urine Negative (Negative); Color Urine Yellow; Glucose Urine UA Negative (Negative); Ketones Urine Negative (Negative); Leukocyte Esterase Urine Negative (Negative); Nitrite Urine Negative (Negative); Protein Urine Negative (Negative); Specific Gravity Urine 1.007 (1.000-1.030); Urobilinogen Urine Negative (Negative)
[2019-11-28 12:20] LABS: Fibrinogen 227 mg/dl (184-400); Prothrombin Time 10.7 Seconds (9.0-12.0)
--- NOTE | 2019-11-28 12:27 | Hospitalist Progress Note ---
Date of Service November 28, 2019 Assessment & Plan (1) GI bleeding: (2) Melena: (3) Hematochezia: Patient with persistent GI bleeding following colonoscopy. Status post EGD and colonoscopy today Appreciate input from GI EGD shows normal exam, Colonoscopy, 2 small clean-based ulcers noted, possible from the biopsy area, no active bleeding Diet advanced, tolerating well Will be observed overnight, if no further episode of GI bleed patient is stable will be discharged home tomorrow Avoid NSAIDs Patient complains of bloating, discomfort, will refer nuclear medicine gastric emptying study in a.m. We will follow-up with GI as an outpatient, will need capsule endoscopy to rule outs bleeding from small bowel Patient has history of easy bruising, bleeding, Ordered for PT/INR thrombin time, fibrinogen level, von Willebrand factor, will need outpatient follow-up with hematology (4) Hypokalemia: Corrected Acute blood loss anemia: Due to GI bleed, Resolved, no indication for blood transfusion Monitor H&H (5) Anxiety: Continue Prozac. (6) DVT prophylaxis: SCDs Encourage ambulation Disposition: Discharge home tomorrow Admission and Anticipated Discharge Date Admission Date: November 27, 2019 Subjective had EGD and colonoscopy today had some lower abdominal pain post procedure , no further GI bleed diet advanced , tolerating well HB 9.4 today no complain of nausea /vomiting pt will be observed overnight if now evidence of GI bleed Review of Systems Gastrointestinal: + abdominal pain; no nausea and no hematemesis Physical Exam Constitutional: WD/WN, vitals as above Eyes: PERRL, conjunctivae normal, anicteric sclerae ENMT: external ear and nose normal, oropharynx normal Neck: trachea midline, no thyromegaly Respiratory: normal respiratory effort, lungs clear to auscultation Cardiovascular: RRR, no murmur, no edema Gastrointestinal (Abdomen): normal bowel sounds, soft, nontender, no hepatosplenomegaly Musculoskeletal: no cyanosis or clubbing, extremities motor strength 5/5 Skin: no rashes, warm and dry Neurologic: PERRL, EOMI, accommodation nl, no face palsy, no dysarthria Psychiatric: A+Ox3, euthymic affect Results & Data Results & Data ([facility]) Vital Signs (Past 12 Hours) Vital Signs Temp Pulse Pulse Pulse Resp BP BP 11/28/19 09:41 36.5 C 68 18 125/84 11/28/19 09:10 36.3 C L 60 16 122/77 11/28/19 09:02 36.2 C L 81 16 139/86 11/28/19 07:17 36.8 C 66 18 143/90 H 11/28/19 07:06 60 11/28/19 03:00 36.6 C 60 20 118/78 11/28/19 00:57 58 L Pulse Ox 11/28/19 09:41 100 11/28/19 09:10 100 11/28/19 09:02 100 11/28/19 07:17 99 11/28/19 07:06 11/28/19 03:00 99 11/28/19 00:57 (1) GI bleeding GI bleed type/associated pathology: anorectal hemorrhage Qualified Code(s): K62.5 - Hemorrhage of anus and rectum
[2019-11-28] MEDS: POLYETHYLENE (MIRALAX) 17 GM PACK PO SCH (20:29)
[2019-11-28] MEDS: FLUOXETINE HCL 20 MG CAP PO SCH (20:29)
[2019-11-28] MEDS: MELATONIN 3 MG TAB PO SCH (20:34)
[2019-11-28] MEDS ORDERED: DOCUSATE SODIUM/SENNA 50/8.6MG TAB PO SCH (21:00)
[2019-11-29] MEDS ORDERED: DiphenhydrAMINE HCL 50 MG/ML VIAL IV STA (03:29)
[2019-11-29 06:34] LABS: Basophils # (auto) 0.04 K/uL (0-0.2); Basophils % (auto) 0.5 %; Eosinophils # (auto) 0.15 K/uL (0-0.5); Hematocrit (blood only) 27.1 % (37-47); Hemoglobin 9.2 g/dL (12.0-16.0); Immature Granulocytes # (auto) 0.02 K/uL (0.00-0.02); Immature Granulocytes % (auto) 0.3 %; Lymphocytes # (auto) 1.74 K/uL (1.2-3.4); Lymphocytes % (auto) 23.6 %; Mean Corpuscular Hemoglobin 30.6 pg (25-34); Mean Corpuscular Hgb Conc 33.9 g/dL (32-36); Mean Platelet Volume 10.8 fL (7.4-10.4); Monocytes # (auto) 0.47 K/uL (0.11-0.59); Monocytes % (auto) 6.4 %; Neutrophils # (auto) 4.94 K/uL (1.4-6.5); Neutrophils % (auto) 67.2 %; Platelet Count 241 K/uL (130-400); RDW Coefficient of Variation 13.1 % (11.5-14.5); Red Blood Count 3.01 M/uL (4.2-5.4); White Blood Count 7.36 K/uL (4.8-10.8)
[2019-11-29] MEDS: POLYETHYLENE (MIRALAX) 17 GM PACK PO SCH (07:01)
--- NOTE | 2019-11-29 09:28 | Anesthesiology Progress Note ---
Date of Service November 29, 2019 Anesthesia Post Procedure Vital Signs Vital Signs: Temp Pulse Pulse Resp BP Pulse Ox 11/29/19 07:20 36.7 C 74 17 146/83 H 98 11/28/19 22:00 36.5 C 64 20 138/88 99 11/28/19 15:09 36.7 C 75 20 117/74 99 11/28/19 09:41 36.5 C 68 18 125/84 100 Pain Intensity Abdomen: Pain Intensity: 3 Notes Mental Status: alert / awake / arousable and participated in evaluation Patient Amnestic to Procedure: Yes Nausea / Vomiting: adequately controlled Pain: adequately controlled Airway Patency, RR, SpO2: stable & adequate BP & HR: stable & adequate Hydration State: stable & adequate Notes: Patient complains of right lower lip ulceration and swelling. There was no airway manipulation by anesthesia during procedure. Hard bite block used for EGD.
--- NOTE | 2019-11-29 09:57 | Hospitalist Progress Note ---
Date of Service November 29, 2019 Assessment & Plan (1) GI bleeding: (2) Melena: (3) Hematochezia: Resolved, no bowel movement today Presented with persistent GI bleeding following colonoscopy. Status post EGD and colonoscopy Appreciate input from GI EGD shows normal exam, Colonoscopy, 2 small clean-based ulcers noted, possible from the biopsy area, no active bleeding Diet advanced, tolerating well no further episode of GI bleed overnight and in a.m. Avoid NSAIDs Scheduled for gastric emptying study today Will be discharged home after nuclear medicine study follow-up with GI as an outpatient, will need capsule endoscopy to rule outs bleeding from small bowel Patient has history of easy bruising, bleeding, Ordered for PT/INR thrombin time, fibrinogen level, von Willebrand factor, will need outpatient follow-up with hematology (4) Hypokalemia: Corrected Acute blood loss anemia: Due to GI bleed, Resolved, no indication for blood transfusion H&H is stable Swelling of lips/possible allergic reaction Due to anesthetics? Patient is not on any EMMANUEL inhibitor, no trouble in speaking, swallowing, no shortness of breath Ordered for 1 dose of IV Solu-Medrol Monitor (5) Anxiety: Continue Prozac. (6) DVT prophylaxis: SCDs Encourage ambulation Disposition: Will be discharged home after nuclear medicine study today Admission and Anticipated Discharge Date Admission Date: November 27, 2019 Subjective Developed swelling of lips last night, no new medications Benadryl was given, for possible allergic reaction, No improvement as per patient, Ordered for IV Solu-Medrol 20 mg x 1 Patient is scheduled for gastric emptying study today Complaint of abdominal pain no nausea vomiting No dark bowel movement Physical Exam Constitutional: WD/WN, vitals as above Eyes: PERRL, conjunctivae normal, anicteric sclerae ENMT: external ear and nose normal, oropharynx normal Mouth: + lip abnormality (Minimum swelling of lips,) Neck: trachea midline, no thyromegaly Respiratory: normal respiratory effort, lungs clear to auscultation Cardiovascular: RRR, no murmur, no edema Gastrointestinal (Abdomen): normal bowel sounds, soft, nontender, no hepatosplenomegaly Musculoskeletal: no cyanosis or clubbing, extremities motor strength 5/5 Skin: no rashes, warm and dry Neurologic: PERRL, EOMI, accommodation nl, no face palsy, no dysarthria Psychiatric: A+Ox3, euthymic affect Results & Data Results & Data ([facility]) Vital Signs (Past 12 Hours) Vital Signs Temp Pulse Resp BP Pulse Ox 11/29/19 07:20 36.7 C 74 17 146/83 H 98 11/28/19 22:00 36.5 C 64 20 138/88 99 (1) GI bleeding GI bleed type/associated pathology: anorectal hemorrhage Qualified Code(s): K62.5 - Hemorrhage of anus and rectum
[2019-11-29] MEDS ORDERED: methylPREDNISolone 20 MG in SYRINGE 0 ML IV ONE (10:00)
--- NOTE | 2019-11-29 10:33 | Gastroenterology Progress Note ---
Date of Service November 29, 2019 Assessment & Plan (1) GI bleeding: Pt is a 34 y/o female who was admitted for dark foul smelling stools and hematochezia since her previous colonoscopy on 11/22/2019. EGD/Colonoscopy 11/27 showed TI ulcers, 2 colon ulcers (one clipped) - all w/o stigmata of bleeding. No active Gi bleeding noted. Blood ct stable, no BMs since procedures yesterday - Monitor blood ct - Start iron and folate - GES today to r/o gastroparesis - Schedule VCE outpt to r/o small bowel bleed - Hematology referral outpt for possible bleeding diathesis - GI to sign off; pls recall prn I reviewed chart and labs. No events. OK for d/c home after GES. Will arrange for outpt Gi follow up, in addition to other consults mentioned above. (2) Anemia: Admission and Anticipated Discharge Date Admission Date: November 27, 2019 Subjective Pt denies any BMs after EGD/Colonoscopy yesterday. Mild abd discomfort no n/v. Been NPO for GES test this afternoon She did mention having lip swelling after endoscopies yesterday - appeared to may have bit (teeth bar) her R lower lip. She however thought she may have allergic reaction, Benadryl given last night. Denies tongue swelling, CP, SOB. + nasal congestion Review of Systems Review of Systems: All systems reviewed & are unremarkable except as noted in HPI & below Physical Exam Constitutional: WD/WN, vitals as above well groomed, cooperative and comfortable Eyes: PERRL, conjunctivae normal, anicteric sclerae ENMT: external ear and nose normal, oropharynx normal Mouth: + lip abnormality (R lower lip swelling w teeth shantal) Respiratory: normal respiratory effort, lungs clear to auscultation Cardiovascular: RRR, no murmur, no edema Gastrointestinal (Abdomen): normal bowel sounds, soft, nontender, no hepatosplenomegaly Skin: no rashes, warm and dry no jaundice Neurologic: Motor/Sensory: no asterixis Psychiatric: A+Ox3, euthymic affect Lymphatic: no lymphedema Results & Data ([facility]) Vital Signs (Past 12 Hours) Vital Signs Temp Pulse Resp BP Pulse Ox 11/29/19 07:20 36.7 C 74 17 146/83 H 98 (1) GI bleeding GI bleed type/associated pathology: anorectal hemorrhage Qualified Code(s): K62.5 - Hemorrhage of anus and rectum
--- NOTE | 2019-11-29 14:50 | Nuclear Medicine Report ---
NUCLEAR GASTRIC EMPTYING STUDY: CLINICAL HISTORY: poor gastric emptying COMPARISON STUDY: None TECHNIQUE: Following the oral administration of 1 mCi of technetium 99m sulfur colloid in egg sandwic h and 8 ounces of water, static abdominal images are performed anteriorly and posteriorly at 0 minute s, 1 hour, 2 hours, and 4 hour time intervals. Gastric emptying was calculated utilizing the geometri c mean method. FINDINGS: There is approximately 87 % gastric activity remaining at the 1 hour time interval, 67 % at the 2 hour time interval (normal is less than 60%), and 11 % remaining at the 4 hour time interval ( normal is less than 10%). These findings are consistent with an abnormal study IMPRESSION: Findings are consistent with a mildly abnormal study. There is 67% gastric retention at 2 hours, and 11% gastric retention at 4 hours (normal is less than 60%, and less than 10% respectively ). ACT 112: Negative or not required by law. Electronically signed by: Liborio Marino M.D. 11/29/2019 2:49 PM
--- NOTE | 2019-11-29 17:41 | Discharge Summary ---
Date of Service November 29, 2019 Admission HPI Per Admitting Provider Patient is a 34 yo female presenting to the ED today for concerns of persistent GI bleeding following a colonoscopy. The patient had an outpatient colonoscopy completed on 11/22/[address] Hess. The scope showed one small aphthous ulcer in the ileum but was otherwise unrevealing. Random biopsies were performed which were normal & showed no signed of IBD. Since her scope, the patient has had continued abdominal pain, melena, and hematochezia. Her stools have been black/sticky, but she has also had bright red blood in and around the stool. She notes that she does also feel extremely full and bloated after eating a small amount. She does have mild GERD symptoms after eating. She does not take anything OTC for these symptoms. She denies dizziness, lightheadedness, SOB, LLANOS, but she has had increasing fatigue for months. She does have chronic migraines for which she uses Maxalt. She does also take Aleve at least twice per week for her migraines and fibromyalgia. Of note, the patient did also have an outpatient CT scan of the Abd/Pelvis WO contrast on 11/24/19 for renal stones. The scan showed B/L 5 mm or smaller intrarenal stones which are nonobstructing. No other abnormalities were noted. Since presentation to the ED, her Hgb was noted to be 10. Last outpatient Hgb was done on 05/26/18 and was 13.3 at the time. Her potassium was very slightly low at 3.4, and her calcium level was low at 7.8 . Otherwise, labs are unrevealing. Urine sample was negative. FOBT pending. CXR and KUB were normal. Principal Diagnosis BLOOD IN STOOL NORMAL EGD AND COLONOSCOPY Anemia Discharge Exam Constitutional WD/WN, vitals as above Eyes PERRL, conjunctivae normal, anicteric sclerae ENMT external ear and nose normal, oropharynx normal Mouth: + lip abnormality (Minimum swelling of lips,) Neck trachea midline, no thyromegaly Respiratory normal respiratory effort, lungs clear to auscultation Cardiovascular RRR, no murmur, no edema Gastrointestinal (Abdomen) normal bowel sounds, soft, nontender, no hepatosplenomegaly Musculoskeletal no cyanosis or clubbing, extremities motor strength 5/5 Skin no rashes, warm and dry Neurologic PERRL, EOMI, accommodation nl, no face palsy, no dysarthria Psychiatric A+Ox3, euthymic affect Discharge Data Allergies Allergy/AdvReac Type Severity Reaction Status Date / Time nortriptyline AdvReac Verified 11/27/19 10:53 pregabalin [From Lyrica] AdvReac Seizure Verified 06/12/18 08:17 sumatriptan [From Imitrex] AdvReac vomiting Verified 11/27/19 10:53 Consultations 11/27/19 10:06 ED Decision to Admit Stat 11/27/19 11:22 Consult Gastroenterology Routine Procedures Performed Operation Date: 11/28/19 07:30 Actual Procedures p Colonoscopy(Not Applicable) - Mario Hess s Esophagogastroduodenoscopy(Not Applicable) - Mario Harpera Operation Date: 11/29/19 16:30 <No data on this case meets the specified criteria> Hospital Course (1) GI bleeding: (2) Melena: (3) Hematochezia: Resolved, no bowel movement today Presented with persistent GI bleeding following colonoscopy. Status post EGD and colonoscopy Appreciate input from GI EGD shows normal exam, Colonoscopy, 2 small clean-based ulcers noted, possible from the biopsy area, no active bleeding Diet advanced, tolerating well no further episode of GI bleed overnight and in a.m. Avoid NSAIDs gastric emptying study -mildly abnormal study follow-up with GI as an outpatient, will need capsule endoscopy to rule outs bleeding from small bowel Anemia work-up: Iron studies on 11/27/2019: normal iron 51/TIBC 350 within normal limit/ferritin 23.6 within normal limit Normal LFTs Bleeding disorder work-up: Normal PT/INR, APTT pending Normal fibrinogen Factor VIII activity, von Willebrand antigen, Von Willebrand multimer: Report pending Peripheral blood film: Normocytic anemia, no hematologic disorder noted And will be followed up with hematology outpatient for further work-up Results of the lab will be faxed to patient's family physician and hematology clinic (4) Hypokalemia: Corrected Acute blood loss anemia: Due to GI bleed, Resolved, no indication for blood transfusion H&H is stable (5) Anxiety: Continue Prozac. (6) DVT prophylaxis: SCDs Encourage ambulation Disposition: stable to be discharged home today Total Time Total Time Spent Total Time Spent (In Minutes): 35mins Total Time Includes: Examination of the Patient, Discharge Planning and Medication Reconciliation Discharge Plan Discharge Items Patient Disposition: Home - Self-Care Reason For Visit: GI BLEED Discharge Diagnosis: BLOOD IN STOOL NORMAL EGD AND COLONOSCOPY Anemia Activity: Resume your previous activity Non-emergency contact: Primary Care Provider Call non-emergency contact if: you have any medication questions Follow-up/Referrals: Mario Hess [Physician] - Vadim Singh MD [Primary Care Provider] - 12/01/19 11:05 am Lu Roy MD [Hospitalist] - (Follow-up with hematology Dr. Roy in 2-3 weeks for further evaluation of anemia Please schedule appointment through your family physician's office) Diet: Regular Ambulatory Orders: Complete Blood Count no Diff (Routine) Timeframe: 20191201 Location: Determined by Patient Ordered By: Alma Rosa Yoon Attending Provider Instructions: Follow up with GI in clinic for video capsule endoscopy DO NOT TAKE ASPIRIN , MOTRIN , ALEVE , IBUPROPHEN , NAPROXEN , Advil, avoid NSAIDs which can cause bleeding and GI tract Need repeat lab work: Complete blood count :on next physician visit 12/01/19 Follow-up with hematology oncology /Dr. Roy for further work-up of anemia Anemia work-up: Iron studies on 11/27/2019: normal iron 51/TIBC 350 within normal limit/ferritin 23.6 within normal limit Normal LFTs Bleeding disorder work-up: Normal PT/INR, APTT pending Normal fibrinogen Factor VIII activity, von Willebrand antigen, Von Willebrand multimer: Report pending Peripheral blood film: Normocytic anemia, no hematologic disorder noted Follow up with hematology outpatient for further work-up Results of the lab will be faxed to patient's family physician and hematology clinic You have started with iron and folic acid supplement for anemia Please call your family physician or come to ER with any recurrence of dark stool or blood in stool Pending Studies at Discharge: Yes Studies:: Capsule Endoscopy at out patient Lab: Complete blood count Stand-Alone Forms: [employer], Smoking Cessation Medications and DC Order Prescriptions: New ferrous fumarate 456 mg (150 mg iron) tablet 456 mg PO DAILY Qty: 30 RF: 3 folic acid 1 mg tablet 1 mg PO DAILY Qty: 30 RF: 3 Continued rizatriptan [Maxalt] 10 mg Tablet 10 mg PO UD PRN (Reason: Pain) RF: 0 melatonin 3 mg Tablet 3 mg PO HS RF: 0 fluoxetine 20 mg capsule 20 mg PO HS RF: 0 Discharge Orders: Discharge Order (Routine); Ordered 11/29/19 Ordered By: Alma Rosa Escobar Admission Data Admit Date/Time: 11/27/19 10:44 Attending Provider: Alma Rosa Escobar Admit Provider: Leonard Quarles Primary Care Provider: Vadim Singh Other Providers: Alma Rosa Escobar ; Mario Hess Other Interventions: Discharge Summary Assessment (RN) Last Done: 11/29/19 17:08
[2019-12-07 16:12] LABS: APTT 27 sec (22-34); F8 Activity 108 % normal (50-180); Ristocetin Cofactor 147 % normal (42-200); Von Willebrand Factor Antigen 118 % (50-217)
== END 2019-11-29 17:30 | disposition home or self-care (01) | DRG 378 ==
LOC: ED 08:07 → SUATTDRO 10:44 → 2N 10:44
DX: D62 Acute posthemorrhagic anemia; R22.0 Localized swelling, mass and lump, head; R68.81 Early satiety; F17.290 Nicotine dependence, other tobacco product, uncomplicated; E87.6 Hypokalemia; Z79.899 Other long term (current) drug therapy; F41.9 Anxiety disorder, unspecified; Z88.8 Allergy status to other drugs, medicaments and biological substances; R14.0 Abdominal distension (gaseous); K92.1 Melena